=== PATIENT | male | born 1950 | race Two or more races ===

== ENCOUNTER 2021-08-30 09:19 | Outpatient (REF) | payer MEDICARE, SELFPAY ==
--- NOTE | ~2021-08-30 | XR_ITS ---
EXAMINATION: XR SHOULDER, RIGHT XR SHOULDER, LEFT CLINICAL INFORMATION: Bilateral shoulder pain. COMPARISON: None TECHNIQUE: AP external rotation, Grashey, scapular Y, and axillary views of each shoulder. FINDINGS: RIGHT SHOULDER: Moderate acromioclavicular osteoarthritis. There is more mild glenohumeral osteoarthritis with small marginal osteophytes. No joint space narrowing. No fracture or malalignment. Soft tissues are unremarkable. LEFT SHOULDER: Mild acromioclavicular osteoarthritis. 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 The glenohumeral joint appears well preserved. Soft tissues are unremarkable. No fractures. XR/XR shoulder LT min 2V IMPRESSION: 1. Moderate acromioclavicular and mild glenohumeral osteoarthritis in the right shoulder. 2. 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
--- NOTE | ~2021-08-30 | XR_ITS ---
EXAMINATION: XR SHOULDER, RIGHT XR SHOULDER, LEFT CLINICAL INFORMATION: Bilateral shoulder pain. COMPARISON: None TECHNIQUE: AP external rotation, Grashey, scapular Y, and axillary views of each shoulder. FINDINGS: RIGHT SHOULDER: Moderate acromioclavicular osteoarthritis. There is more mild glenohumeral osteoarthritis with small marginal osteophytes. No joint space narrowing. No fracture or malalignment. Soft tissues are unremarkable. LEFT SHOULDER: Mild acromioclavicular osteoarthritis. 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 The glenohumeral joint appears well preserved. Soft tissues are unremarkable. No fractures. XR/XR shoulder RT min 2V IMPRESSION: 1. Moderate acromioclavicular and mild glenohumeral osteoarthritis in the right shoulder. 2. 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
== END 2021-08-30 09:20 | disposition home or self-care (01) ==
LOC: HO.XRAY 09:19
PROVIDERS: PCP Internal Medicine Geriatric Medicine; Visit Provider Internal Medicine Geriatric Medicine
DX: M25.511 Pain in right shoulder (principal); M25.512 Pain in left shoulder; M19.011 Primary osteoarthritis, right shoulder; M89.212 Other disorders of bone development and growth, left shoulder
CPT/HCPCS: 73030

== ENCOUNTER → 2021-10-01 09:36 | Outpatient (BNVA) | payer MEDICARE, SELFPAY | PROVIDERS: PCP Internal Medicine Geriatric Medicine; Visit Provider Physician Assistant | DX: M75.101 Unspecified rotator cuff tear or rupture of right shoulder, not specified as traumatic (principal); M75.102 Unspecified rotator cuff tear or rupture of left shoulder, not specified as traumatic; M75.01 Adhesive capsulitis of right shoulder; M75.02 Adhesive capsulitis of left shoulder | CPT/HCPCS: 20610; 99202; J1040 ==

== ENCOUNTER 2022-10-24 09:23 | Outpatient (REF) | payer OTHER, SELFPAY ==
[2022-10-24 09:35] LABS: MANUAL DIFF FLAG NO
[2022-10-24 10:55] LABS: Prothrombin Time 11.7 SEC (10.0-13.1)
[2022-10-24 10:56] LABS: Basophils Absolute Auto 0.1 X10*3/uL (0.0-0.2); Basophils Percent Auto 1.1 % (0-2); Eosinophils Absolute Auto 0.5 X10*3/uL (0.0-0.4); Eosinophils Percent Auto 5.3 % (0-4); Imm Gran Abs Auto 0.07 X10*3/uL (0.00-0.03); Imm Gran Pct Auto 0.7 % (0.0-0.4); Lymphocytes Absolute Auto 3.7 X10*3/uL (1.2-4.9); Lymphocytes Percent Auto 37.3 % (20-40); Mean Corpuscular HGB Conc 32.4 g/dl (31.0-36.0); Mean Corpuscular Hemoglobin 26.8 pg (27.0-33.0); Mean Corpuscular Volume 82.9 fL (80.0-98.0); Mean Platelet Volume 12.1 fL (9.4-12.4); Monocytes Absolute Auto 0.8 X10*3/uL (0.1-1.2); Monocytes Percent Auto 8.2 % (2-11); Neutrophils Absolute Auto 4.7 x10*3/uL (2.0-8.3); Neutrophils Percent Auto 47.4 % (45-73); Platelet Count 213 X10*3/uL (160-400); Red Cell Distribution Width 15.9 % (11.0-16.0); White Blood Count 9.9 X10*3/uL (4.8-10.8)
[2022-10-24 11:22] LABS: Anion Gap 17 (12-20); Blood Urea Nitrogen 12 mg/dL (9-16); Calcium 9.3 mg/dL (8.4-10.2); Carbon Dioxide 24 mmol/L (22-29); Chloride 104 mmol/L (96-108); Estimated Glomerular Filt Rate > 60; Glucose Random 112 mg/dL (60-115); Potassium 4.2 mmol/L (3.3-5.1); Sodium 141 mmol/L (135-145)
== END 2022-10-24 09:24 | disposition home or self-care (01) ==
LOC: HO.LAB 09:23
PROVIDERS: PCP Internal Medicine Geriatric Medicine; Visit Provider Student in an Organized Health Care Education/Training Program
DX: R07.9 Chest pain, unspecified (principal)
CPT/HCPCS: 36415; 80048; 85025; 85610

== ENCOUNTER 2023-02-28 07:24 | Outpatient (REF) | payer OTHER, SELFPAY | END 2023-02-28 07:25 | disposition home or self-care (01) | LOC: HO.HOSX 07:24 | PROVIDERS: Visit Provider Physician Assistant | DX: Z13.89 Encounter for screening for other disorder (principal) ==

== ENCOUNTER 2023-03-24 11:40 | Outpatient (REF) | payer OTHER, SELFPAY | END 2023-03-24 11:41 | disposition home or self-care (01) | LOC: HO.HOSX 11:40 | PROVIDERS: Visit Provider Physician Assistant | DX: Z13.89 Encounter for screening for other disorder (principal) ==

== ENCOUNTER 2024-10-27 08:39 | Outpatient (REF) | payer OTHER, SELFPAY ==
--- OUTSIDE RECORDS SUMMARY | 2024-10-27 08:47 | XMS_ITS | Encounter Summary ---
Author Organization [employer] [facility] Address [address] [place] [address] Care Team Providers Care Rehab Director Name Role Phone Name, Saurabh BUSH Primary Care Provider [phone] Reason for Visit * Reason Comments Med Refill Encounter Details Date Type Department Care Team (Late st Contact Info) Description 06/03/2024 Refill [facility] [address] [place] [address] NameSaurabh MD [address] [place] [address] Social History Tobacco Use Types Packs/Day Years Used Date Smoking Tobacco: Never Smokeless Tobacco: Never Sex and Gender Information Value Date Recorded Sex Assigned at Male 07/08/2022 10:15 AM EDT Legal Sex Male 10:15 AM EDT Gender Identity Male 07/08/2022 10:15 AM EDT Sexual Orientation Straight 07/08/2022 10 :15 AM EDT documented as of this encounter Plan of Treatment Upcoming Encounters Date Type Department Care Team (Late st Contact Info) Description 01/13/2025 9:15 AM EDT Office Visit [facility] [address] [place] [address] Saurabh De La Paz MD [address] [place] [address] documented as of this encounter Visit Diagnoses Not on filedocumented in this encounter Care Teams Rehab Director Relationship Specialty Start Date End Date Saurabh De La Paz MD [address] [place] [address] PCP - General Family Medicine 12/06/15 documented as of this encounter
--- OUTSIDE RECORDS SUMMARY | 2024-10-27 08:47 | XMS_ITS | Encounter Summary ---
Author Organization [employer] [facility] Address [address] [place] [address] Care Team Providers Care Information Systems Analyst Name Role Phone Name, Saurabh BUSH Primary Care Provider [phone] Reason for Visit * Reason Comments Follow-up Encounter Details Date Type Department Care Team (Late st Contact Info) Description 10/26/2024 10:45 AM EST Office Visit [facility] [address] [place] [address] Name, MD Saurabh [address] [place] [address] Hypertension, unspecified type (Primary Dx); Grief; Chronic bilateral low back pain, unspecified whether sciatica present; Habitual alcohol use; Encounter for immunization Social History Tobacco Use Types Packs/Day Years Used Date Smoking Tobacco: Never Smokeless Tobacco: Never Alcohol Use Standard Drinks/Week Comments Yes 18 (1 standard drink = 0.6 oz pu re alcohol) Sex and Gender Information Value Date Recorded Sex Assigned at Male 07/08/2022 10:15 AM EDT Legal Sex Male 10:15 AM EDT Gender Identity Male 07/08/2022 10:15 AM EDT Sexual Orientation Straight 07/08/2022 10 :15 AM EDT documented as of this encounter Last Filed Vital Signs Vital Sign Reading Time Taken Comments Blood Pressure 135/68 10/26/2024 10:51 AM EST Pulse 90 10/26/2024 10:51 AM EST Temperature - - Respiratory Rate 14 10/26/2024 10:51 AM EST Oxygen Saturation 98% 10/26/2024 10:51 AM EST Inhaled Oxygen Concentration - - Weight 89.8 kg (198 lb) 10/26/2024 10:51 AM EST Height 170.2 cm (5' 7 ) 10/26/2024 10:51 AM EST Body Mass Index 31.01 10/26/2024 10:51 AM EST documented in this encounter Progress Notes * Saurabh De La Paz MD - 10/26/2024 10:45 AM EST Subjective Patient ID: Jose Bennett is a 74 y.o. male who presents for Follow-up. Patient comes for a follow-up visit. He complains of daily severe low back pain. He has a personal history of severe DJD of the lumbar spine. The patient also admits to some depression and insomnia. The patient tells me his recently . He denies any suicidal ideation. I offered referral to behavioral health but he told me he already has a behavioral health therapist going to his house. He has a history of excessive alcohol use. The patient admits to drinking a sixpack of beer every other day. The patient tells me he has not drank alcohol in 2 or 3 days. I offered again referralto AUD clinic but he is not interested. He denies the use of illicits. He denies any chest pains orshortness of breath. He tells me he is using his medications regularly. He was never a smoker. In the past he tested positive for cocaine but he tells me he rarely uses cocaine. Review of Systems Constitutional: Negative for chills, fatigue and fever. HENT: Negative for sore throat. Respiratory: Negative for cough, chest tightness and shortness of breath. Cardiovascular: Negative for chest pain, palpitations and leg swelling. Gastrointestinal: Negative for abdominal pain and blood in stool. Musculoskeletal: Positive for back pain. Psychiatric/Behavioral: Positive for sleep disturbance. Visit Vitals BP 135/68 (BP Location: Left arm, Patient Position: Sitting, BP Cuff Size: Adult) Pulse 90 Resp 14 Ht 5' 7 (1.702 m) Wt 198 lb (89.8 kg) SpO2 98% BMI 31.01 kg/m?? Smoking Status Never BSA 2.06 m?? Objective Physical Exam Constitutional: Appearance: Normal appearance. Cardiovascular: Rate and Rhythm: Normal rate and regular rhythm. Heart sounds: No murmur heard. Pulmonary: Effort: Pulmonary effort is normal. No respiratory distress. Breath sounds: No wheezing, rhonchi or rales. Abdominal: Palpations: Abdomen is soft. Tenderness: There is no abdominal tenderness. Musculoskeletal: Lumbar back: Spasms and tenderness present. Right lower leg: No edema. Left lower leg: No edema. Neurological: General: No focal deficit present. Mental Status: He is alert. Motor: No weakness. Current Outpatient Medications on File Prior to Visit Medication Sig Dispense Refill allopurinol (Zyloprim) 100 MG tablet TAKE 2 TABLETS BY MOUTH EVERY DAY 90 tablet 1 amLODIPine (Norvasc) 5 MG tablet TAKE 1 TABLET BY MOUTH EVERY DAY 90 tablet 3 Aspirin Low Dose 81 MG EC tablet TAKE 1 TABLET BY MOUTH EVERY DAY 90 tablet 0 cyanocobalamin (Vitamin B-12) 1000 MCG tablet TAKE 1 TABLET BY MOUTH ONCE DAILY 90 tablet 3 ergocalciferol (Vitamin D-2) 1.25 MG (12426 UT) capsule take 1 capsule by oral route every week 4 capsule 5 losartan-hydroCHLOROthiazide (Hyzaar) 100-25 MG tablet Take 1 tablet by mouth Once per day. 90 tablet 3 omega-3 (Fish Oil) 1000 MG capsule TAKE 1 CAPSULE BY MOUTH TWICE DAILY 180 capsule 0 omeprazole (PriLOSEC) [address] capsule TAKE 1 CAPSULE BY MOUTH EVERY DAY BEFORE A MEAL 90 capsule 1 [DISCONTINUED] baclofen (Lioresal) 10 MG tablet TAKE 1 TABLET BY MOUTH TWICE DAILY 40 tablet 1 [DISCONTINUED] omega-3 1000 MG capsule capsule Take 2 times a day No current facility-administered medications on file prior to visit. Assessment/Plan Diagnoses and all orders for this visit: Hypertension, unspecified type Comments: Continue current meds, cut back on alcohol, check fasting blood work listed below Orders: - CBC auto differential; Future - Comprehensive Metabolic Panel; Future - Lipid Panel, Standard; Future Grief Comments: I offered referral to behavioral health but he refused. He denies suicidal ideation. He already hasa therapist going to his house Chronic bilateral low back pain, unspecified whether sciatica present Comments: I recommended OTC naproxen and Tylenol 3 times a day. Repeat urine tox screen. If urine tox screen is negative I will prescribe short course of tramadol to control his severe low back pain. Habitual alcohol use Comments: I recommended to cut back. For now he refuses referral to AUD clinic Orders: - Comprehensive Metabolic Panel; Future - Drug Monitoring, Cocaine Metabolite, Quantitative, Urine; Future - Drug Monitoring, Fentanyl, with Confirmation, Urine; Future - Oxycodone Screen, Urine; Future Encounter for immunization - FLU VACCINE TRIVALENT (Fluarix) 6 mo + documented in this encounter Plan of Treatment Upcoming Encounters Date Type Department Care Team (Late st Contact Info) Description 01/13/2025 9:15 AM EDT Office Visit [facility] [address] [place] [address] Name, MD Saurabh [address] [place] [address] Scheduled Orders Name Type Priority Associated Diagnoses Orde r Schedule CBC auto differential Lab Routine Hypertension, unspecified type Expected: 10/26/2024 (Approximate), Expires: 10/26/2025 Comprehensive Metabolic Panel Lab Routine Hypertension, unspecified type Habitual alcohol use Expected: 10/26/2024 (Approximate), Expires: 10/26/2025 Lipid Panel, Standard Lab Routine Hypertension, unspecified type Expected: 10/26/2024 (Approximate), Expires: 10/26/2025 Drug Monitoring, Cocaine Metabolite, Quantitative, Urine Lab Routine Habitual alcohol use Expected: 10/26/2024, Expires: 10/26/2025 Drug Monitoring, Fentanyl, with Confirmation, Urine Lab Routine Habitual alcohol use Expected: 10/26/2024, Expires: 10/26/2025 Oxycodone Screen, Urine Lab Routine Habitual alcohol use Expected: 10/26/2024 (Approximate), Expires: 10/26/2025 documented as of this encounter Visit Diagnoses Diagnosis Hypertension, unspecified type- Primary Grief Adjustment disorder with depressed mood Chronic bilateral low back pain, unspecified whether sciatica present Habitual alcohol use Nondependent alcohol abuse, unspecified drinking behavior Encounter for immunization documented in this encounter Care Teams Information Systems Analyst Relationship Specialty Start Date End Date Name, MD Saurabh [address] [place] [id number] PCP - General Family Medicine 12/06/15 documented as of this encounter
--- OUTSIDE RECORDS SUMMARY | 2024-10-27 08:47 | XMS_ITS | Encounter Summary ---
Author Organization [employer] [facility] Address [address] [facility] [address] [place] [address] Care Team Providers Care Window Tinter Name Role Phone Name, Saurabh BUSH Primary Care Provider [phone] Reason for Visit * Reason Comments Med Refill Encounter Details Date Type Department Care Team (Late st Contact Info) Description 10/04/2024 Refill [facility] [address] [place] [address] NameSaurabh MD [address] [place] [address] Heartburn Social History Tobacco Use Types Packs/Day Years [...] Description 01/13/2025 9:15 AM EDT Office Visit [facility] [address] [place] [address] NameSaurabh MD [address] [place] [address] documented as of this encounter Visit Diagnoses Diagnosis Heartburn documented in this encounter Care Teams Window Tinter Relationship Specialty Start Date End Date Saurabh De La Paz MD [address] [place] [address] PCP - General Family Medicine 12/06/15 documented as of this encounter
--- OUTSIDE RECORDS SUMMARY | 2024-10-27 08:47 | XMS_ITS | Encounter Summary ---
Author Organization [employer] [facility] Address [address] [place] [address] Care Team Providers Care Oil Field Roustabout Name Role Phone Name, Saurabh BUSH Primary Care Provider [phone] Encounter Details Date Type Department Care Team (Late st Contact Info) Description 10/26/2024 Telephone [facility] [address] [place] [phone] Carmen Maciel RN Social History Tobacco Use Types Packs/Day Years [...] AM EDT documented as of this encounter Miscellaneous Notes * Telephone Encounter - Carmen Maciel RN - 10/26/2024 11:20 AM EST High dose currently not available and administered regular influence vaccine instead, pt tolerated well and no adverse reactions noted. documented in this encounter Plan of Treatment Upcoming Encounters Date Type Department Care Team (Late st Contact Info) Description 01/13/2025 9:15 AM EDT Office Visit [facility] [address] [place] [address] Name, [place] [address] documented as of this encounter Visit Diagnoses Not on filedocumented in this encounter Care Teams Oil Field Roustabout Relationship Specialty Start Date End Date Name, MD Saurabh [address] [place] [address] PCP - General Family Medicine 12/06/15 documented as of this encounter
--- OUTSIDE RECORDS SUMMARY | 2024-10-27 08:47 | XMS_ITS | Encounter Summary ---
Author Organization [facility] [facility] Address [address] 7t [place] [address] Care Team Providers Care Title I Math Tutor Name Role Phone Name, Saurabh BUSH Primary Care Provider [phone] Reason for Visit * Reason Comments Med Refill Encounter Details Date Type Department Care Team (Late st Contact Info) Description 07/24/2023 Refill [facility] [address] [place] [address] NameSaurabh MD [address] [place] [address] Social History Tobacco Use Types Packs/Day Years [...] Description 01/13/2025 9:15 AM EDT Office Visit [facility] [address] [place] [address] Saurabh De La Paz MD [address] [place] [address] documented as of this encounter Visit Diagnoses Not on filedocumented in this encounter Care Teams Title I Math Tutor Relationship Specialty Start Date End Date Saurabh De La Paz MD [address] [place] [address] PCP - General Family Medicine 12/06/15 documented as of this encounter
--- OUTSIDE RECORDS SUMMARY | 2024-10-27 08:47 | XMS_ITS | Encounter Summary ---
Author Organization [employer] [facility] Address [address] [place] [address] Care Team Providers Care Director Of Channel Marketing Name Role Phone Name, Saurabh BUSH Primary Care Provider [phone] Encounter Details Date Type Department Care Team (Late st Contact Info) Description 08/21/2022 Orders Only [facility] [address] [place] [address] Livia Hyman LPN Social History Tobacco Use Types Packs/Day Years Used Date Smoking Tobacco: Never Assessed Sex and Gender Information Value Date Recorded Sex Assigned at Male 07/08/2022 10:15 AM EDT Legal Sex Male 10:15 AM EDT Gender Identity Male 07/08/2022 10:15 AM EDT Sexual Orientation Straight 07/08/2022 10 :15 AM EDT documented as of this encounter Plan of Treatment Upcoming Encounters Date Type Department Care Team (Late st Contact Info) Description 01/13/2025 9:15 AM EDT Office Visit [facility] [address] [place] [address] Name, MD Saurabh [address] [place] [address] documented as of this encounter Visit Diagnoses Not on filedocumented in this encounter Care Teams Director Of Channel Marketing Relationship Specialty Start Date End Date Name, MD Saurabh [address] [place] [address] PCP - General Family Medicine 12/06/15 documented as of this encounter
--- OUTSIDE RECORDS SUMMARY | 2024-10-27 08:47 | XMS_ITS | Encounter Summary ---
Author Organization [employer] [facility] Address [address] [address] [place] [address] Care Team Providers Care Wooden Box Maker Name Role Phone Name, Saurabh BUSH Primary Care Provider [phone] Reason for Visit * Reason Comments Med Refill Encounter Details Date Type Department Care Team (Late st Contact Info) Description 05/31/2024 Refill [facility] [address] [place] [address] Bessy Mcghee FNP [address] [place] [address] Social History Tobacco Use Types Packs/Day Years [...] Description 01/13/2025 9:15 AM EDT Office Visit [facility] [address] [place] [address] Name, MD Saurabh [address] [place] [address] documented as of this encounter Visit Diagnoses Not on filedocumented in this encounter Care Teams Wooden Box Maker Relationship Specialty Start Date End Date Name, MD Saurabh [address] [place] [address] PCP - General Family Medicine 12/06/15 documented as of this encounter
--- OUTSIDE RECORDS SUMMARY | 2024-10-27 08:47 | XMS_ITS | Encounter Summary ---
Author Organization [facility] Address [address] [facility] [address] [place] [address] Care Team Providers Care Captain Room Service Name Role Phone Name, Saurabh BUSH Primary Care Provider [phone] Reason for Visit * Reason Onset Date Comments Med Refill [facility]V Form 06/16/2024 I called the pat ient, regarding a Request for Replacement Placard from the RMV. I informed him that the request is for him to complete. There is no place for the provider to sign. He asked if it is possible for a staff member to mail the form out to the [facility]. It will be mailed out today, and a copy will be sent to his home. He verbalized understanding. Encounter Details Date Type Department Care Team (Late st Contact Info) Description 06/16/2024 Refill [facility] [address] [place] [address] Name, MD Saurabh [address] [place], [place] [id number] Social History Tobacco Use Types Packs/Day Years Used Date Smoking Tobacco: Never Smokeless Tobacco: Never Sex and Gender Information Value Date Recorded Sex Assigned at Male 07/08/2022 10:15 AM EDT Legal Sex Male 10:15 AM EDT Gender Identity Male 07/08/2022 10:15 AM EDT Sexual Orientation Straight 07/08/2022 10 :15 AM EDT documented as of this encounter Miscellaneous Notes * Telephone Encounter - Kaylah Liu MA - 06/23/2024 9:59 AM EDT I called the patient, regarding a Request for Replacement Placard from the [facility]. I informed him thatthe request is for him to complete. There is no place for the provider to sign. He asked if it is possible for a staff member to mail the form out to the [facility]. It will be mailed out today, and a copy will be sent to his home. He verbalized understanding. documented in this encounter Plan of Treatment Upcoming Encounters Date Type Department Care Team (Late st Contact Info) Description 01/13/2025 9:15 AM EDT Office Visit [facility] [address] [place] [address] Name, MD Saurabh [address] [place] [address] documented as of this encounter Visit Diagnoses Not on filedocumented in this encounter Care Teams Captain Room Service Relationship Specialty Start Date End Date Name, MD Saurabh [address] [place] [phone] PCP - General Family Medicine 12/06/15 documented as of this encounter
--- OUTSIDE RECORDS SUMMARY | 2024-10-27 08:47 | XMS_ITS | Clinical Summary ---
Author Organization [employer] Address [address] [facility] 7t [place] [address] Care Team Providers Care Ballet Company Member Name Role Phone Name, Saurabh BUSH Primary Care Provider [phone] Allergies No known active allergies Medications ergocalciferol (Vitamin D-2) 1.25 MG (81747 UT) capsuleIndicat ions:Vitamin D deficiency take 1 capsule by oral route every week 4 capsule 5 08/21/20 22 Active amLODIPine (Norvasc) 5 MG tabletIndicati ons:Peripheral vascular disease (CMS/HCC) TAKE 1 TABLET BY MOUTH EVERY DAY 90 tablet 3 10/23/19 23 Active cyanocobalamin (Vitamin B-12) 1000 MCG tabletIndicati ons:Peripheral vascular disease (CMS/HCC) TAKE 1 TABLET BY MOUTH ONCE DAILY 90 tablet 3 11/25/19 24 Active omega-3 (Fish Oil) 1000 MG capsuleIndicat ions:Periphera l vascular disease (CMS/HCC) TAKE 1 CAPSULE BY MOUTH TWICE DAILY 180 capsule 01/27/20 24 Active losartan-hydro CHLOROthiazide (Hyzaar) 100-25 MG tablet Take 1 tablet by mouth Once per day. 90 tablet 3 03/17/20 24 Active allopurinol (Zyloprim) 100 MG tablet TAKE 2 TABLETS BY MOUTH EVERY DAY 90 tablet 1 07/30/20 24 Active Aspirin Low Dose 81 MG EC tablet TAKE 1 TABLET BY MOUTH EVERY DAY 90 tablet 09/17/19 25 Active omeprazole (PriLOSEC) [address] capsuleIndicat ions:Heartburn TAKE 1 CAPSULE BY MOUTH EVERY DAY BEFORE A MEAL 90 capsule 1 10/04/19 25 Active omega-3 1000 MG capsule capsule Take 2 times a day 06/13/20 22 025 Discontinued(Du plicate order (will not trigger notification to Pharmacy)) baclofen (Lioresal) 10 MG tablet TAKE 1 TABLET BY MOUTH TWICE DAILY 40 tablet 1 03/12/20 23 025 Discontinued(Th erapy completed) omeprazole (PriLOSEC) [address] capsuleIndicat ions:Heartburn TAKE 1 CAPSULE BY MOUTH EVERY DAY BEFORE A MEAL 90 capsule 1 12/23/19 24 025 Discontinued Active Problems Problem Noted Date Diagnosed Date Umbilical hernia without obstruction and without gangrene 11/04/2017 Tinea pedis 07/23/2017 Alcohol abuse 01/25/2016 Low back pain 01/25/2016 Gout 02/04/2013 Right bundle branch block 01/21/2013 Overview (12/06/2022): F/u with cardi, had normal cardiac cath with [place] Dysphagia 01/21/2013 Dactylitis 12/08/2012 Cobalamin deficiency 12/04/2012 Microscopic hematuria 12/04/2012 Vitamin D deficiency 09/17/2012 KANDIS positive 09/17/2012 Lumbosacral radiculopathy 06/04/2012 Raynaud's disease 06/04/2012 Scoliosis deformity of spine 06/04/2012 Peripheral vascular disease 02/26/2012 Pure hypercholesterolemia 02/26/2012 Arthropathy 02/26/2012 Chronic eczema 02/26/2012 Obesity 02/26/2012 Encounters Date Type Department Care Team Description 10/26/2024 10:45 AM EST Office Visit [facility] [address] [place] [address] Name, MD Saurabh Hypertension, unspecified type (Primary Dx); Grief; Chronic bilateral low back pain, unspecified whether sciatica present; Habitual alcohol use; Encounter for immunization 10/26/2024 Telephone [facility] [address] [place], [place] [phone] Carmen Maciel RN 10/26/2024 Travel 10/04/[address] [facility] [address] [place] [address] NameSaurabh MD Heartburn 09/17/[address] [facility] [address] [place] [address] NameSaurabh MD 07/30/[address] [facility] [address] [place] [address] Name, MD Saurabh from Last 3 Months Immunizations Name Administration Dates Next Due Influenza High-dose Quadriva lent Preservative Free 08/20/2022,06/27/2020 Influenza injectable quadriv alent IIV4 with preservative 07/10/2018,07/23/2017,07/08/2016 Influenza injectable quadriv alent preservative free 08/29/2021,06/15/2015 Influenza, High Dose Seasona l, Preservative Free 05/28/2019 Influenza, IIV3, injectable 07/22/2014, 2 Influenza, Split (incl. perez fied surface antigen) 06/16/2013 Influenza, seasonal, injecta ble, preservative free 10/26/2024 Pneumococcal Conjugate PCV 13 04/15/2018 Pneumococcal Polysaccharide PPSV23 10/11/2009 TD (adult), 2 Lf tetanus tox oid, preservative free, adsorbed 03/01/2008 Tdap 08/02/2013 Zoster, live 08/11/2015 Social History Tobacco Use Types Packs/Day Years Used Date Smoking Tobacco: Never Smokeless Tobacco: Never Tobacco Cessation:Counseling Given: Not Answered Alcohol Use Standard Drinks/Week Comments Yes 18 (1 standard drink = 0.6 oz pu re alcohol) Sex and Gender Information Value Date Recorded Sex Assigned at Male 07/08/2022 10:15 AM EDT Legal Sex Male 10:15 AM EDT Gender Identity Male 07/08/2022 10:15 AM EDT Sexual Orientation Straight 07/08/2022 10 :15 AM EDT Last Filed Vital Signs Vital Sign Reading Time Taken Comments Blood Pressure 135/68 10/26/2024 10:51 AM EST Pulse 90 10/26/2024 10:51 AM EST Temperature 37.1 ??C (98.7 ??F) 12/06/2022 10:12 AM E DT Respiratory Rate 14 10/26/2024 10:51 AM EST Oxygen Saturation 98% 10/26/2024 10:51 AM EST Inhaled Oxygen Concentration - - Weight 89.8 kg (198 lb) 10/26/2024 10:51 AM EST Height 170.2 cm (5' 7 ) 10/26/2024 10:51 AM EST Body Mass Index 31.01 10/26/2024 10:51 AM EST Plan of Treatment Upcoming Encounters Date Type Department Care Team (Late st Contact Info) Description 01/13/2025 9:15 AM EDT Office Visit [facility] [address] [place] [address] Name, MD Saurabh [address] [place] [address] Health Maintenance Due Date Last Done Comments CT Colonography 1952 Colonoscopy 1952 Colorectal Cancer Screening 1952 Depression Screening 1952 FIT DNA/Cologuard 1952 FIT 1952 FOBT 1952 Lipid Panel 1952 SDOH Screening 1952 Sigmoidoscopy 1952 Alcohol/Substance Use Screening 1964 Hepatitis C Screening 1970 Hepatitis A Vaccines (1 of 2 - Risk 2-dose series) 1971 Zoster Vaccines (2 of 3) 10/06/2015 08/11/2015 Pneumococcal Vaccine: 50+ Years (3 of 3 - PCV20 or PCV21) 04/15/2023 04/15/2018, 10/11/2009 DTaP/Tdap/Td Vaccines (2 - Td or Tdap) 08/02/2023 08/02/2013, 03/01/2008 COVID-19 Vaccine ( season) 2024 08/29/2021, 11/28/2020, 10/31/2020 Tobacco Screening 10/26/2025 10/26/2024 RSV Patients and Patients Aged 60 years or older (1 - 1-dose 75+ series) 2027 Influenza Vaccine Completed 10/26/2024, , 08/29/2021, Additional history exists HIB Vaccines Aged Out No longer eligi ble based on patient's age to complete this topic HPV Vaccines Aged Out No longer eligi ble based on patient's age to complete this topic Hepatitis B Vaccines Aged Out No long er eligible based on patient's age to complete this topic IPV Vaccines Aged Out No longer eligi ble based on patient's age to complete this topic Meningococcal Vaccine Aged Out No denise mariana eligible based on patient's age to complete this topic RSV under 20 months Aged Out No longe r eligible based on patient's age to complete this topic Rotavirus Vaccines Aged Out No longer eligible based on patient's age to complete this topic Insurance [facility] Care Teams Ballet Company Member Relationship Specialty Start Date End Date Name, MD Saurabh [address] [place] [address] PCP - General Family Medicine 12/06/15
--- OUTSIDE RECORDS SUMMARY | 2024-10-27 08:47 | XMS_ITS | Encounter Summary ---
Author Organization [employer] [facility] Address [address] [address] [place] [address] Care Team Providers Care Smt Operator Name Role Phone Name, Saurabh BUSH Primary Care Provider [phone] Encounter Details Date Type Department Care Team (Late st Contact Info) Description 10/23/2022 Orders Only [facility] [address] [place] [address] Anna Chapman LPN Social History Tobacco Use Types Packs/Day [...] Description 01/13/2025 9:15 AM EDT Office Visit [facility] [address] [place] [address] Name, MD Saurabh [address] [place] [address] documented as of this encounter Visit Diagnoses Not on filedocumented in this encounter Care Teams Smt Operator Relationship Specialty Start Date End Date Name, MD Saurabh [address] [place] [address] PCP - General Family Medicine 12/06/15 documented as of this encounter
--- OUTSIDE RECORDS SUMMARY | 2024-10-27 08:47 | XMS_ITS | Encounter Summary ---
Author Organization [employer] [facility] Address [address] [facility] 7t [place] [address] Care Team Providers Care Plate Grainer Name Role Phone Name, Saurabh BUSH Primary Care Provider [phone] Encounter Details Date Type Department Care Team (Latest Contact Info) Description 10/26/2024 Travel Social History Tobacco Use Types Packs/Day Years [...] Description 01/13/2025 9:15 AM EDT Office Visit [facility] [address] [place] [address] Name, MD Saurabh [address] [place] [address] documented as of this encounter Visit Diagnoses Not on filedocumented in this encounter Care Teams Plate Grainer Relationship Specialty Start Date End Date Name, MD Saurabh [address] [place] [address] PCP - General Family Medicine 12/06/15 documented as of this encounter
--- OUTSIDE RECORDS SUMMARY | 2024-10-27 08:48 | XMS_ITS | Encounter Summary ---
Author Organization [employer] [facility] Address [address] [place] [address] 7 [place] [address] Care Team Providers Care Classification Analyst Name Role Phone Name, Saurabh BUSH Primary Care Provider Reason for Visit * Reason Comments Med Refill Encounter Details Date Type Department Care Team (Late st Contact Info) Description 12/02/2022 Refill [facility] [address] [place] [address] NameSaurabh MD [address] [place] [address] Vitamin D deficiency Social History Tobacco Use Types Packs/Day Years [...] Description 01/13/2025 9:15 AM EDT Office Visit [facility] [address] [place] [address] NameSaurabh MD [address] [place] [address] documented as of this encounter Visit Diagnoses Diagnosis Vitamin D deficiency documented in this encounter Care Teams Classification Analyst Relationship Specialty Start Date End Date Saurabh De La Paz MD [address] [place] [address] PCP - General Family Medicine 12/06/15 documented as of this encounter
[2024-10-27 11:17] LABS: MANUAL DIFF FLAG NO
[2024-10-27 11:35] LABS: Basophils Absolute Auto 0.1 X10*3/uL (0.0-0.2); Basophils Percent Auto 0.8 % (0-2); Eosinophils Absolute Auto 0.4 X10*3/uL (0.0-0.4); Eosinophils Percent Auto 4.3 % (0-4); Hematocrit 32.5 % (42.0-52.0); Hemoglobin 10.3 g/dl (14.0-18.0); Imm Gran Abs Auto 0.13 X10*3/uL (0.00-0.03); Imm Gran Pct Auto 1.4 % (0.0-0.4); Lymphocytes Absolute Auto 2.7 X10*3/uL (1.2-4.9); Lymphocytes Percent Auto 28.1 % (20-40); Mean Corpuscular HGB Conc 31.7 g/dl (31.0-36.0); Mean Corpuscular Hemoglobin 27.9 pg (27.0-33.0); Mean Corpuscular Volume 88.1 fL (80.0-98.0); Mean Platelet Volume 12.1 fL (9.4-12.4); Monocytes Absolute Auto 1.2 X10*3/uL (0.1-1.2); Monocytes Percent Auto 12.2 % (2-11); Neutrophils Percent Auto 53.2 % (45-73); Platelet Count 179 X10*3/uL (160-400); Red Blood Count 3.69 X10*6/uL (4.60-5.80); Red Cell Distribution Width 15.1 % (11.0-16.0); White Blood Count 9.5 X10*3/uL (4.8-10.8)
[2024-10-27 11:50] LABS: Alanine Aminotransferase 30 U/L (0-40); Albumin Level 4.1 g/dL (3.5-5.0); Alkaline Phosphatase 49 U/L (39-117); Anion Gap 12 (12-20); Aspartate Amino Transferase 30 U/L (5-37); Bilirubin Total 0.2 mg/dL (0.0-1.0); Blood Urea Nitrogen 13 mg/dL (9-16); Carbon Dioxide 25 mmol/L (22-29); Chloride 107 mmol/L (96-108); Cholesterol 215 mg/dL (<200); Estimated Glomerular Filt Rate > 60; Glucose Random 117 mg/dL (60-115); HDL Cholesterol 51 mg/dL (>40); LDL Cholesterol Calculated 113 mg/dL (<100); Potassium 3.9 mmol/L (3.3-5.1); Sodium 140 mmol/L (135-145); Total Protein 7.9 g/dL (6.5-8.0); Triglycerides 259 mg/dL (<150)
[2024-10-27 11:58] LABS: Fentanyl, urine Not Detected (Not Detect); Phencyclidine Screen Urine Not Detected (Not Detect)
[2024-10-27 12:05] LABS: Amphetamine Screen Urine Not Detected (Not Detect); Barbiturates, Urine Not Detected (Not Detect); Benzodiazepines Screen Urine Not Detected (Not Detect); Buprenorphine Scr Not Detected (Not Detect); Cannabinoid Screen Urine Not Detected (Not Detect); Cocaine Screen Urine POSITIVE (Not Detect); Methadone Screen, Urine Not Detected (Not Detect); Opiate Screen Urine Not Detected (Not Detect); Oxycodone Screen Urine Not Detected (Not Detect)
[2024-11-01 13:13] LABS: Fentanyl, Ur NEGATIVE; Norfentanyl, Ur NEGATIVE
== END 2024-10-27 08:40 | disposition home or self-care (01) ==
LOC: HO.HHCL 08:39
PROVIDERS: Visit Provider Internal Medicine Geriatric Medicine
DX: I10 Essential (primary) hypertension (principal); F10.90 Alcohol use, unspecified, uncomplicated
CPT/HCPCS: 80053; 80061; 80307; 80354; 85025

== ENCOUNTER 2025-01-13 09:59 | Outpatient (REF) | payer OTHER, SELFPAY ==
--- OUTSIDE RECORDS SUMMARY | 2025-01-13 11:01 | XMS_ITS | Encounter Summary ---
Author Organization [employer] Address [address] [facility] 7t [place] [address] Care Team Providers Care Christmas Tree Farm Worker Name Role Phone Name, Saurabh BUSH Primary Care Provider [phone] Reason for Visit * Reason Onset Date [...] to mail the form out to the [facility]. It will be mailed out today, and a copy will be sent to his home. He verbalized understanding. Encounter Details Date Type Department Care Team (Late st Contact Info) Description 06/16/2024 Refill [facility] [address] [place], [place] [phone] Name, MD Saurabh [address] [place], [place] [phone] Social History Tobacco Use Types Packs/Day Years [...] to mail the form out to the [facility]. It will be mailed out today, and a copy will be sent to his home. He verbalized understanding. documented in this encounter Plan of Treatment Upcoming Encounters Date Type Department Care Team (Late st Contact Info) Description 05/06/2025 10:00 AM EDT Office Visit [facility] [address] [place] [address] Name, MD Saurabh [address] [place] [address] documented as of this encounter Visit Diagnoses Not on filedocumented in this encounter Care Teams Christmas Tree Farm Worker Relationship Specialty Start Date End Date Name, MD Saurabh [address] [place] [address] PCP - General Family Medicine 12/06/15 documented as of this encounter
--- OUTSIDE RECORDS SUMMARY | 2025-01-13 11:01 | XMS_ITS | Encounter Summary ---
Author Organization [employer] [facility] Address [address] [facility] 7t [place] [address] Care Team Providers Care Hot Metal Mixer Operator Name Role Phone Name, Saurabh BUSH Primary Care Provider [phone] Reason for Visit * Reason Comments Med Refill Encounter Details Date Type Department Care Team (Late st Contact Info) Description 12/02/2022 Refill [facility] [address] [place] [address] NameSaurabh MD [address] [place] [address] Vitamin D deficiency Social History Tobacco Use [...] Description 05/06/2025 10:00 AM EDT Office Visit [facility] [address] [place] [address] NameSaurabh MD [address] [place] [address] documented as of this encounter Visit Diagnoses Diagnosis Vitamin D deficiency documented in this encounter Care Teams Hot Metal Mixer Operator Relationship Specialty Start Date End Date Saurabh De La Paz MD [address] [place] [address] PCP - General Family Medicine 12/06/15 documented as of this encounter
--- OUTSIDE RECORDS SUMMARY | 2025-01-13 11:01 | XMS_ITS | Encounter Summary ---
Author Organization [employer] Address [address] [facility] 7t [place] [address] Care Team Providers Care Machine Maintenance Repairer Name Role Phone Name, Saurabh BUSH Primary Care Provider [phone] Reason for Visit * Reason Comments Med Refill Encounter Details Date Type Department Care Team (Late st Contact Info) Description 07/24/2023 Refill [facility] PED[facility] [address] [place] [address] NameSaurabh MD [address] [place] [address] Social History Tobacco Use Types Packs/Day Years [...] Description 05/06/2025 10:00 AM EDT Office Visit [facility] [address] [place] [address] NameSaurabh MD [address] [place] [address] documented as of this encounter Visit Diagnoses Not on filedocumented in this encounter Care Teams Machine Maintenance Repairer Relationship Specialty Start Date End Date Saurabh De La Paz MD [address] [place] [address] PCP - General Family Medicine 12/06/15 documented as of this encounter
--- OUTSIDE RECORDS SUMMARY | 2025-01-13 11:01 | XMS_ITS | Encounter Summary ---
Author Organization [employer] [facility] Address [address] [facility] [address] [place] [address] Care Team Providers Care Advertising Operations Manager Name Role Phone Name, Saurabh BUSH Primary Care Provider Encounter Details Date Type Department Care Team (Late st Contact Info) Description 08/21/2022 Orders Only [facility] [address] [place], [place] [phone] Livia Hyman LPN Social History Tobacco Use [...] Description 05/06/2025 10:00 AM EDT Office Visit [facility] [address] [place] [address] Name, MD Saurabh [address] [place] [address] documented as of this encounter Visit Diagnoses Not on filedocumented in this encounter Care Teams Advertising Operations Manager Relationship Specialty Start Date End Date Name, MD Saurabh [address] [place] [address] PCP - General Family Medicine 12/06/15 documented as of this encounter
--- OUTSIDE RECORDS SUMMARY | 2025-01-13 11:01 | XMS_ITS | Encounter Summary ---
Author Organization [employer] [facility] Address [address] [place] [address] 7t [place] [address] Care Team Providers Care Boatswains Mate Name Role Phone Saurabh De La Paz MD Primary Care Provider [phone] Reason for Referral * Consultation (Routine) - Pending Review Specialty Diagnoses / Procedures Referred By Chanda fritz Referred To Contact Otolaryngology Diagnoses Decreased hearing of both ears Chronic otitis externa of both ears, unspecified type NameSaurabh MD [address] [place] [address] Phone: tel: fax: Referral ID Status Reason Start Date Expiration Date Visits Requested Visits Authorized [id number] Pending Review Specialty Services Required 01/13/2025 01/13/2026 1 1 Reason for Visit * Reason Comments Hypertension Encounter Details Date Type Department Care Team ([facility] st Contact Info) Description 01/13/2025 9:15 AM EDT Office Visit [facility] [address] [place] [phone] Saurabh De La Paz MD [address] [place] [phone] Anemia, unspecified type (Primary Dx); Chronic otitis externa of both ears, unspecified type; Decreased hearing of both ears Social History Tobacco Use Types Packs/Day Years Used Date Smoking Tobacco: Never Smokeless Tobacco: Never Tobacco Cessation:Counseling Given: Not Answered Alcohol Use Standard Drinks/Week Comments Yes 18 (1 standard drink = 0.6 oz pu re alcohol) Depression Answer Date Recorded Patient Health Questionnaire-9 Score 7 01/13/2025 Patient Health Questionnaire-9 Score 7 01/13/2025 Last PHQ-9: Questionnaire Data Not on file 0 01/13/2025 Housing Stability Answer Date Recorded What is your housing situation today? I have yuri anand 12/30/[address] you li ve. Do you have problems with any of the following? None of the above 12/30/2024 Food Insecurity Answer Date Recorded Within the past 12 months, y ou worried that your food would run out before you got money to buy more: Never True 12/30/2024 Within the past 12 months,th e food you bought just didn't last and you didn't have enough money to get more: Never True Transportation Answer Date Recorded In the past 12 months, has l ack of transportation kept you from medical appts, meetings, work or from getting things needed for daily living? No 12/30/2024 Utilities Answer Date Recorded In the past 12 months, has t he electric, gas, oil or water company threatened to shut off services in your home? No 12/30/2024 Depression Answer Date Recorded Patient Health Questionnaire-2 Score 1 01/13/2025 Internet Access Answer Date Recorded Internet Access Q1 Yes 12/30/2024 Internet Access Q2 Not on file 12/30/2024 Sex and Gender Information Value Date Recorded Sex Assigned at Male 07/08/2022 10:15 AM EDT Legal Sex Male 10:15 AM EDT Gender Identity Male 07/08/2022 10:15 AM EDT Sexual Orientation Straight 07/08/2022 10 :15 AM EDT documented as of this encounter Last Filed Vital Signs Vital Sign Reading Time Taken Comments Blood Pressure 146/72 01/13/2025 9:22 AM EDT Pulse 88 01/13/2025 9:22 AM EDT Temperature 37.2 ??C (99 ??F) 01/13/2025 9:22 AM EDT Respiratory Rate 12 01/13/2025 9:22 AM EDT Oxygen Saturation 98% 01/13/2025 9:22 AM EDT Inhaled Oxygen Concentration - - Weight 89.3 kg (196 lb 12.8 oz) 01/13/2025 9:22 AM EDT Height 172.7 cm (5' 8 ) 01/13/2025 9:22 AM EDT Body Mass Index 29.92 01/13/2025 9:22 AM EDT documented in this encounter Progress Notes * Saurabh De La Paz MD - 01/13/2025 9:15 AM EDT Subjective Patient ID: Jose Bennett is a 74 y.o. male who presents for Hypertension. Patient comes for a follow-up visit. He complains of bilateral ear pain, decreased hearing. He has a personal history of recurrent ear infections for many years. The patient admits to occasionally using Q-tips. No fevers or chills, no headaches, no vertigo. We discussed results of most recent blood work. He was found to have mild anemia. I recommended to go for further workup ordered previously including iron, ferritin, B12 levels and fecal occult bloodtesting. The patient denies any blood in the stool. No black stool. Review of Systems Constitutional: Negative for chills, fatigue and fever. HENT: Negative for sore throat. See HPI Respiratory: Negative for cough, chest tightness and shortness of breath. Cardiovascular: Negative for chest pain, palpitations and leg swelling. Gastrointestinal: Negative for abdominal pain and blood in stool. Visit Vitals BP (!) 146/72 (BP Location: Left arm, Patient Position: Sitting, BP Cuff Size: Adult) Pulse 88 Temp 99 ??F (37.2 ??C) (Temporal) Resp 12 Ht 5' 8 (1.727 m) Wt 196 lb 12.8 oz (89.3 kg) SpO2 98% BMI 29.92 kg/m?? Smoking Status Never BSA 2.07 m?? Objective Physical Exam Constitutional: Appearance: Normal appearance. HENT: Right Ear: Decreased hearing noted. Tympanic membrane is injected and scarred. Left Ear: Decreased hearing noted. Tympanic membrane is injected and scarred. Ears: Comments: Bilateral ear canal swelling and redness Cardiovascular: Rate and Rhythm: Normal rate and regular rhythm. Heart sounds: No murmur heard. Pulmonary: Effort: Pulmonary effort is normal. No respiratory distress. Breath sounds: No wheezing, rhonchi or rales. Abdominal: Palpations: Abdomen is soft. Tenderness: There is no abdominal tenderness. Musculoskeletal: Right lower leg: No edema. Left lower leg: No edema. Neurological: Mental Status: He is alert. 2 mo ago 2 yr ago White Blood Count 4.8 - 10.8 X10*3/uL 9.5 9.9 Red Blood Count 4.60 - 5.80 X10*6/uL 3.69 Low 4.10 Low Hemoglobin 14.0 - 18.0 g/dl 10.3 Low 11.0 Low Hematocrit 42.0 - 52.0 % 32.5 Low 34.0 Low Mean Corpuscular Volume 80.0 - 98.0 fL 88.1 82.9 Mean Corpuscular Hemoglobin 27.0 - 33.0 pg 27.9 26.8 Low Mean Corpuscular HGB Conc 31.0 - 36.0 g/dl 31.7 32.4 Red Cell Distribution Width 11.0 - 16.0 % 15.1 15.9 Platelet Count 160 - 400 X10*3/uL 179 213 Mean Platelet Volume 9.4 - 12.4 fL 12.1 12.1 Neutrophils Percent Auto 45 - 73 % 53.2 47.4 Imm Gran Pct Auto 0.0 - 0.4 % 1.4 High 0.7 High Lymphocytes Percent Auto 20 - 40 % 28.1 37.3 Monocytes Percent Auto 2 - 11 % 12.2 High 8.2 Eosinophils Percent Auto 0 - 4 % 4.3 High 5.3 High Basophils Percent Auto 0 - 2 % 0.8 1.1 NRBC Pct Auto 0.0 - 0.2 /100WBC 0.0 0.0 Neutrophils Absolute Auto 2.0 - 8.3 x10*3/uL 5.0 4.7 Imm Gran Abs Auto 0.00 - 0.03 X10*3/uL 0.13 High 0.07 High Lymphocytes Absolute Auto 1.2 - 4.9 X10*3/uL 2.7 3.7 Monocytes Absolute Auto 0.1 - 1.2 X10*3/uL 1.2 0.8 Eosinophils Absolute Auto 0.0 - 0.4 X10*3/uL 0.4 0.5 High Basophils Absolute Auto 0.0 - 0.2 X10*3/uL 0.1 0.1 NRBC Abs Auto 0.0 - 0.012 X10*3/uL 0.000 0.000 Resulting Agency [facility] Assessment/Plan Diagnoses and all orders for this visit: Anemia, unspecified type Comments: I recommended to go to the lab today to check iron levels, ferritin, B12 and folate, fecal occult blood testing. Chronic otitis externa of both ears, unspecified type Comments: I recommend a course of p.o. Augmentin and topical Corticosporin. Referral to ENT. Orders: - Referral to ENT; Future Decreased hearing of both ears - vvbmraai-qqtybzjea-xmjlhrrcbjeyhc (Cortisporin) 3.5-49647-6 otic suspension; Administer 3-4 dropsinto affected ear(s) 4 times daily for 10 days. - Referral to ENT; Future Other orders - amoxicillin-clavulanate (Augmentin) 875-125 MG tablet; Take 1 tablet by mouth 2 times daily for 10 days. documented in this encounter Plan of Treatment Upcoming Encounters Date Type Department Care Team (Late st Contact Info) Description 05/06/2025 10:00 AM EDT Office Visit [facility] [address] [place] [phone] Name, MD Saurabh [address] [place] [phone] Scheduled Referrals Name Type Priority Associated Diagnoses Orde r Schedule Referral to ENT Outpatient Referral Routine Decreased hearing of both ears Chronic otitis externa of both ears, unspecified type Expected: 01/13/2025 (Approximate), Expires: 01/13/2026 documented as of this encounter Visit Diagnoses Diagnosis Anemia, unspecified type- Primary Chronic otitis externa of both ears, unspecified type Decreased hearing of both ears documented in this encounter Additional Health Concerns Assessment Noted Time PHQ-9 Depression Total Score: 7 01/14/20 25 9:24 AM EDT documented as of this encounter Care Teams Boatswains Mate Relationship Specialty Start Date End Date Name, MD Saurabh [address] [place] [address] PCP - General Family Medicine 12/06/15 documented as of this encounter
--- OUTSIDE RECORDS SUMMARY | 2025-01-13 11:01 | XMS_ITS | Encounter Summary ---
Author Organization [employer] Address [address] [facility] [address] [place] [address] Care Team Providers Care Mine Wedge Sawyer Name Role Phone Name, Saurabh BUSH Primary Care Provider [phone] Reason for Visit * Reason Onset Date Comments Chart Prep 01/12/2025 Encounter Details Date Type Department Care Team ([facility] st Contact Info) Description 01/12/2025 Telephone [facility] MEDICINE [address] [place] [address] Brittaney Kaur MA Chart Prep Social History Tobacco Use Types Packs/Day Years [...] encounter Miscellaneous Notes * Telephone Encounter - Brittaney Kaur MA - 01/12/2025 10:05 AM EDT Chart Prep Labs: not done Images: not applicable Referrals: not applicable Vaccines due: Covid, PCV20, Tdap, and Zoster Screenings: Hep C Overdue care gaps: SDOH, PHQ-9, YESSICA-7, Disability screen, and Tobacco documented in this encounter Plan of Treatment Upcoming Encounters Date Type Department Care Team (Late st Contact Info) Description 05/06/2025 10:00 AM EDT Office Visit [facility] MEDICINE [address] [place] [phone] NameSaurabh MD [address] [place] [address] documented as of this encounter Visit Diagnoses Not on filedocumented in this encounter Care Teams Mine Wedge Sawyer Relationship Specialty Start Date End Date Saurabh De La Paz MD [address] [place] [address] PCP - General Family Medicine 12/06/15 documented as of this encounter
--- OUTSIDE RECORDS SUMMARY | 2025-01-13 11:01 | XMS_ITS | Encounter Summary ---
Author Organization [employer] Address 75 [facility] 7t [place] [address] Care Team Providers Care Field Underwriter Name Role Phone Name, Saurabh BUSH Primary Care Provider [phone] Reason for Visit * Reason Comments Med Refill Encounter Details Date Type Department Care Team (Late st Contact Info) Description 05/31/2024 Refill [facility] MED & PEDS [address] [place] [address] Bessy Mcghee FNP [address] [place] [address] Social History Tobacco Use Types Packs/Day Years [...] Description 05/06/2025 10:00 AM EDT Office Visit [facility] MEDICINE [address] [place] [address] Name, MD Saurabh [address] [place] [address] documented as of this encounter Visit Diagnoses Not on filedocumented in this encounter Care Teams Field Underwriter Relationship Specialty Start Date End Date Name, MD Saurabh [address] [place] [address] PCP - General Family Medicine 12/06/15 documented as of this encounter
--- OUTSIDE RECORDS SUMMARY | 2025-01-13 11:01 | XMS_ITS | Encounter Summary ---
Author Organization [employer] Address 75 [facility] 7t [place] [address] Care Team Providers Care Fuel Conversion Technician Name Role Phone Name, Saurabh BUSH Primary Care Provider [phone] Reason for Visit * Reason Comments Med Refill Encounter Details Date Type Department Care Team (Late st Contact Info) Description 06/03/2024 Refill [facility] CH[facility] MED & PEDS [address] [place] [address] NameSaurabh MD [address] [place] [address] Social History Tobacco Use Types Packs/Day Years [...] Description 05/06/2025 10:00 AM EDT Office Visit [facility] MEDICINE [address] [place] [address] NameSaurabh MD [address] [place] [address] documented as of this encounter Visit Diagnoses Not on filedocumented in this encounter Care Teams Fuel Conversion Technician Relationship Specialty Start Date End Date Saurabh De La Paz MD [address] [place] [address] PCP - General Family Medicine 12/06/15 documented as of this encounter
--- OUTSIDE RECORDS SUMMARY | 2025-01-13 11:02 | XMS_ITS | Encounter Summary ---
Author Organization [employer] Address [address] [facility] [address] [place] [address] Care Team Providers Care Derrick Helper Name Role Phone Name, Saurabh BUSH Primary Care Provider Encounter Details Date Type Department Care Team (Late st Contact Info) Description 10/23/2022 Orders Only [facility] MED & PEDS [address] [place] [address] Anna Chapman LPN Social History Tobacco Use [...] 10:00 AM EDT Office Visit [facility] MEDICINE [address] [place] [address] Name, MD Saurabh [address] [place] [address] documented as of this encounter Visit Diagnoses Not on filedocumented in this encounter Care Teams Derrick Helper Relationship Specialty Start Date End Date Name, MD Saurabh [address] [place] [address] PCP - General Family Medicine 12/06/15 documented as of this encounter
--- OUTSIDE RECORDS SUMMARY | 2025-01-13 11:02 | XMS_ITS | Encounter Summary ---
Author Organization [employer] Address [address] [facility] [address] [place] [address] Care Team Providers Care Laminator Printed Circuit Boards Name Role Phone Name, Saurabh BUSH Primary Care Provider Encounter Details Date Type Department Care Team (Latest Contact Info) Description 01/13/2025 Travel Social History Tobacco Use Types Packs/Day [...] your housing situation today? I have yuri kika 12/30/[address] you li [...] Description 05/06/2025 10:00 AM EDT Office Visit [facility] MEDICINE [address] [place] [address] NameSaurabh MD [address] [place] [address] documented as of this encounter Visit Diagnoses Not on filedocumented in this encounter Additional Health Concerns Assessment Noted Time PHQ-9 Depression Total Score: 7 01/14/20 25 9:24 AM EDT documented as of this encounter Care Teams Laminator Printed Circuit Boards Relationship Specialty Start Date End Date NameSaurabh MD [address] [place] [address] PCP - General Family Medicine 12/06/15 documented as of this encounter
--- OUTSIDE RECORDS SUMMARY | 2025-01-13 11:02 | XMS_ITS | Clinical Summary ---
Author Organization [employer] Address 75 [facility] 7t [place] [address] Care Team Providers Care Crop Supervisor Name Role Phone Name, Saurabh BUSH Primary Care Provider [phone] Allergies No known active allergies Medications ergocalciferol (Vitamin D-2) 1.25 MG (94730 UT) capsuleIndicati ons:Vitamin D deficiency take 1 capsule by oral route every week 4 capsule 5 08/21/20 22 Active amLODIPine (Norvasc) 5 MG tabletIndicatio ns:Peripheral vascular disease (CMS/HCC) TAKE 1 TABLET BY MOUTH EVERY DAY 90 tablet 3 10/23/19 23 Active cyanocobalamin (Vitamin B-12) 1000 MCG tabletIndicatio ns:Peripheral vascular disease (CMS/HCC) TAKE 1 TABLET BY MOUTH ONCE DAILY 90 tablet 3 11/25/19 24 Active losartan-hydroC HLOROthiazide (Hyzaar) 100-25 MG tablet Take 1 tablet by mouth Once per day. 90 tablet 3 03/17/20 24 Active omeprazole (PriLOSEC) [address] capsuleIndicati ons:Heartburn TAKE 1 CAPSULE BY MOUTH EVERY DAY BEFORE A MEAL 90 capsule 1 10/04/19 25 Active atorvastatin (Lipitor) 20 MG tabletIndicatio ns:High cholesterol Take 1 tablet (20 mg) by mouth Once per day. 30 tablet 11 10/28/19 25 026 Active omega-3 (Fish Oil) 1000 MG capsuleIndicati ons:Peripheral vascular disease (CMS/HCC) TAKE 1 CAPSULE BY MOUTH TWICE DAILY 180 capsule 10/28/19 25 Active allopurinol (Zyloprim) 100 MG tablet TAKE 2 TABLETS BY MOUTH EVERY DAY 180 tablet 1 11/24/19 25 Active Aspirin Low Dose 81 MG EC tablet TAKE 1 TABLET BY MOUTH EVERY DAY 90 tablet 12/17/19 25 Active neomycin-polymy nunu-hydrocortis one (Cortisporin) 3.5-22614-5 otic suspensionIndic ations:Decrease d hearing of both ears Administer 3-4 drops into affected ear(s) 4 times daily for 10 days. 10 mL 01/14/20 25 025 Active amoxicillin-cla vulanate (Augmentin) 875-125 MG tablet Take 1 tablet by mouth 2 times daily for 10 days. 20 tablet 01/14/20 25 025 Active Aspirin Low Dose 81 MG EC tablet TAKE 1 TABLET BY MOUTH EVERY DAY 90 tablet 09/17/19 25 025 Discontinued Active Problems Problem Noted Date Diagnosed Date Anemia 01/13/2025 Chronic otitis externa of both ears 01/13/2025 Umbilical hernia without obstruction and without gangrene 11/04/2017 Tinea pedis 07/23/2017 Alcohol abuse 01/25/2016 Low back pain 01/25/2016 Gout 02/04/2013 Right bundle branch block 01/21/2013 Overview (12/06/2022): F/u with cardi, had normal cardiac cath with [place] Dysphagia 01/21/2013 Cobalamin deficiency 12/04/2012 Microscopic hematuria 12/04/2012 Vitamin D deficiency 09/17/2012 KANDIS positive 09/17/2012 Lumbosacral radiculopathy 06/04/2012 Raynaud's disease 06/04/2012 Scoliosis deformity of spine 06/04/2012 Peripheral vascular disease 02/26/2012 Pure hypercholesterolemia 02/26/2012 Arthropathy 02/26/2012 Chronic eczema 02/26/2012 Obesity 02/26/2012 Resolved Problems Problem Noted Date Diagnosed Date Resolved Date Dactylitis 12/08/2012 10/28/2024 Encounters Date Type Department Care Team Description 01/13/2025 9:15 AM EDT Office Visit [facility] MEDICINE [address] [place] [address] Name, MD Saurabh Anemia, unspecified type (Primary Dx); Chronic otitis externa of both ears, unspecified type; Decreased hearing of both ears 01/13/2025 Travel 01/12/2025 Telephone [facility] MEDICINE [address] [place] [address] Brittaney Kaur MA Chart Prep 12/30/2024 Patient Outreach [facility] MED & PEDS [address] [place] [address] Saurabh De La Paz MD Pre-visit Planning (SDOH negative, Tobacco screening negative.) 12/16/2024 Refill [facility] MED & PEDS [address] [place] [address] Genesis Ku NP 11/22/2024 Refill [facility] MED & PEDS [address] [place] [address] Saurabh De La Paz MD 10/28/2024 Refill [facility] MED & PEDS [address] [place], [place] [phone] Saurabh De La Paz MD Peripheral vascular disease ([facility]/HCC) 10/28/2024 Telephone [facility]INE [address] [place] [address] Saurabh De La Paz MD 10/28/2024 Orders Only [facility] [address] [place] [address] Saurabh De La Paz MD High cholesterol (Primary Dx); Anemia, unspecified type 10/27/2024 Orders Only [facility] [address] [place] [address] Saurabh De La Paz MD 10/26/2024 10:45 AM EST Office Visit [facility]INE [address] [place] [address] Saurabh De La Paz MD Hypertension, unspecified type (Primary Dx); Grief; Chronic bilateral low back pain, unspecified whether sciatica present; Habitual alcohol use; Encounter for immunization 10/26/2024 Telephone [facility] [address] [place] [address] Carmen Maciel, REESE 10/26/2024 Travel from Last 3 Months Immunizations Name Administration [...] Mass Index 29.92 01/13/2025 9:22 AM EDT Plan of Treatment Upcoming Encounters Date Type Department Care Team (Late st Contact Info) Description 05/06/2025 10:00 AM EDT Office Visit [facility] MED[facility]INE [address] [place] [address] Name, MD Saurabh [address] [place] [address] Health Maintenance Due Date Last Done Comments CT Colonography 1952 Colonoscopy 1952 Colorectal Cancer Screening 1952 FIT DNA/Cologuard 1952 FIT 1952 FOBT 1950 Sigmoidoscopy 1952 Hepatitis C Screening 1970 Zoster Vaccines (2 of 3) 10/06/2015 08/11/2015 Pneumococcal Vaccine: 50+ Years (3 of 3 - PCV20 or PCV21) 04/15/2023 04/15/2018, 10/11/2009 DTaP/Tdap/Td Vaccines (2 - Td or Tdap) 08/02/2023 08/02/2013, 03/01/2008 COVID-19 Vaccine ( - season) 2024 08/29/2021, 11/28/2020, 10/31/2020 Alcohol/Substance Use Screening 01/13/2026 01/13/2025 Depression Screening 01/13/2026 01/13/2025, 01/14/20 SDOH Screening 01/13/2026 01/13/2025 Tobacco Screening 01/13/2026 01/13/2025 RSV Patients and Patients Aged 60 years or older (1 - 1-dose 75+ series) 2027 Lipid Panel 10/27/2029 10/27/2024 Influenza Vaccine Completed 10/26/2024, , 08/29/2021, Additional history exists HIB Vaccines Aged Out No longer eligi ble based on patient's age to complete this topic HPV Vaccines Aged Out No longer eligi ble based on patient's age to complete this topic Hepatitis A Vaccines Aged Out No long er eligible [...] on patient's age to complete this topic Procedures Procedure Name Priority Date/Time Associated Diagnosis Comments DRUG MONITOR, PANEL 1, SCREEN, URINE Routine 10/27/2024 8:58 AM EST DRUG MONITOR, FENTANYL, W/CONF, URINE Routine 10/27/2024 8:58 AM EST Habitual alcohol use LIPID PANEL, STANDARD Routine 10/27/2024 8:53 AM EST Hypertension, unspecified type COMPREHENSIVE METABOLIC PANEL Routine 10/27/2024 8:53 AM EST Hypertension, unspecified type Habitual alcohol use CBC WITH AUTO DIFFERENTIAL Routine 10/27/2024 8:53 AM EST Hypertension, unspecified type from Last 3 Months Results * (ABNORMAL) Drug Monitoring, Panel 1, Screen, Urine (10/27/2024 8:58 AM EST) Opiate Screen Urine Not Detected Not Detect [facility] Comment:Opiate cut-off is 30 0 ng/mL.Positive results are unconfirmed and should not be used fornon-medical purposes. Barbiturates, Urine Not Detected Not Detect [facility] Comment:Barbiturate cut-off is 200 ng/mL.Positive results are unconfirmed and should not be used fornon-medical purposes. Phencyclidine Screen Urine Not Detected Not Detect [facility] Comment:Phencyclidine cut-of f is 25 ng/mL.Positive results are unconfirmed and should not be used fornon-medical purposes. Amphetamine Screen Urine Not Detected Not Detect [facility] Comment:Amphetamine cut-off is 1000 ng/mL.Positive results are unconfirmed and should not be used fornon-medical purposes. Benzodiazepines Screen Urine Not Detected Not Detect [facility] Comment:Benzodiazepine cut-o ff is 200 ng/mL.Positive results are unconfirmed and should not be used fornon-medical purposes. Cocaine Screen Urine POSITIVE(A) Not Detect [facility] Comment:Cocaine cut-off is 3 00 ng/mL.Positive results are unconfirmed and should not be used fornon-medical purposes. Cannabinoid Screen Urine Not Detected Not Detect [facility] Comment:Cannabinoid cut-off is 50 ng/mL.Positive results are unconfirmed and should not be used fornon-medical purposes. Methadone Screen, Urine Not Detected Not Detect ng/mL [facility] Comment:Methadone cut-off is 300 ng/mL.Positive results are unconfirmed and should not be used fornon-medical purposes. FENTANYL URINE Not Detected Not Detect [facility] Comment:Fentanyl cut-off is 1 ng/mL.Positive results are unconfirmed and should not be used fornon-medical purposes. Oxycodone Urine Screen Not Detected Not Detect ng/mL [facility] Comment:Oxycodone cut-off is 100 ng/mL.Positive results are unconfirmed and should not be used fornon-medical purposes. Buprenorphine Screen Not Detected Not Detect ng/mL [facility] Comment:Buprenorphine cut-of f is 5 ng/mL.Positive results are unconfirmed and should not be used fornon-medical purposes. 10/27/2024 8:58 AM EST 10/27/2024 11:22 AM EST us Saurabh De La Paz MD LAB URINE ORDERABLES Final Resul t Performing Organization Address [facility]/ZIP Co de Phone Number [facility] [address] [place] [phone] * Drug Monitoring, Fentanyl, with Confirmation, Urine (10/27/2024 8:58 AM EST) Fentanyl, Ur NEGATIVE [facility] Comment:REFERENCE RANGE: <0. 5 ng/mL Norfentanyl, Ur NEGATIVE [facility] Comment:REFERENCE RANGE: <0. 5 ng/mL Fentanyl Note SEE NOTE [facility] Comment:This drug testing is for medical treatment only. Analysiswas performed as non-forensic testing and these resultsshould be used only by healthcare providers to renderdiagnosis or treatment, or to monitor progress of medicalconditions.LDT Notes:Confirmation tests were developed and their analyticalperformance characteristics have been determined by [employer]. It has not been cleared or approved by the FDA.This assay has been validated pursuant to the CLIAregulations and is used for clinical purposes.Healthcare Providers needing Interpretation assistance,please contact us at [phone] ( ) M-F,8am to 10pm ESTTHIS TEST PERFORMED AT:[facility] [address] [phone] DIRECTOR: KRYSTA WILSON MD Urine (Urine, Random) 10/27/2024 8:58 AM EST 10/27/2024 11:22 AM EST us Saurabh De La Paz MD LAB URINE ORDERABLES Final Resul t Performing Organization Address [facility] Co de Phone Number [facility] [address] [place] [phone] * (ABNORMAL) CBC auto differential (10/27/2024 8:53 AM EST) White Blood Count 9.5 4.8 - 10.8 X10*3/uL [facility] Red Blood Count 3.69(L) 4.60 - 5.80 X10*6/uL [facility] Hemoglobin 10.3(L) 14.0 - 18.0 g/dl [facility] Hematocrit 32.5(L) 42.0 - 52.0 % [facility] Mean Corpuscular Volume 88.1 80.0 - 98.0 fL [facility] Mean Corpuscular Hemoglobin 27.9 27.0 - 33.0 pg [facility] Mean Corpuscular HGB Conc 31.7 31.0 - 36.0 g/dl [facility] Red Cell Distribution Width 15.1 11.0 - 16.0 % [facility] Platelet Count 179 160 - 400 X10*3/uL [facility] Mean Platelet Volume 12.1 9.4 - 12.4 fL [facility] Neutrophils Percent Auto 53.2 45 - 73 % [facility] Imm Gran Pct Auto 1.4(H) 0.0 - 0.4 % [facility] Lymphocytes Percent Auto 28.1 20 - 40 % [facility] Monocytes Percent Auto 12.2(H) 2 - 11 % [facility] Eosinophils Percent Auto 4.3(H) 0 - 4 % [facility] Basophils Percent Auto 0.8 0 - 2 % [facility] NRBC Pct Auto 0.0 0.0 - 0.2 /100WBC [facility] Neutrophils Absolute Auto 5.0 2.0 - 8.3 x10*3/uL [facility] Imm Gran Abs Auto 0.13(H) 0.00 - 0.03 X10*3/uL [facility] Lymphocytes Absolute Auto 2.7 1.2 - 4.9 X10*3/uL [facility] Monocytes Absolute Auto 1.2 0.1 - 1.2 X10*3/uL [facility] Eosinophils Absolute Auto 0.4 0.0 - 0.4 X10*3/uL [facility] Basophils Absolute Auto 0.1 0.0 - 0.2 X10*3/uL [facility] NRBC Abs Auto 0.000 0.0 - 0.012 X10*3/uL [facility] Blood Venous blood specimen / Unknown 10/27/2024 8:53 AM EST 10/27/2024 11:13 AM EST us Saurabh De La Paz MD LAB BLOOD ORDERABLES Final Resul t Performing Organization Address [facility] de Phone Number [facility] [address] [place] [address] [phone] * (ABNORMAL) Lipid Panel, Standard (10/27/2024 8:53 AM EST) Triglycerides 259(H) <150 mg/dL [facility] Comment:Desirable Triglyceri de: less than 150 mg/dLBorderline High Triglyceride 150-199 mg/dLHigh Triglyceride: 200-499 mg/dLVery High Triglyceride: greater than or equal to 5OO mg/dL Cholesterol 215(H) <200 mg/dL [facility] Comment:Desirable Cholestero l: less than 200 mg/dLBorderline High Cholesterol: 200-239 mg/dLHigh Cholesterol: greater than 239 mg/dL LDL Cholesterol Calculated 113(H) <100 mg/dL [facility] Comment:Desirable LDL: less than 100 mg/dLNear Optimal/Above Optimal LDL: 110- 129 mg/dLBorderline High LDL: 130-159 mg/dLHigh LDL: 160-189 mg/dLVery High LDL: greater than or equal to 190 mg/dL HDL Cholesterol 51 >40 mg/dL [facility] Comment:Desirable HDL: great er than 40 mg/dL Note: This HDL assay may give artificially low results in patients with liver disease. Blood Venous blood specimen / Unknown 10/27/2024 8:53 AM EST 10/27/2024 11:16 AM EST us Saurabh De La Paz MD LAB BLOOD ORDERABLES Final Resul t Performing Organization Address City/[facility] Co de Phone Number [facility] [address] [place] [phone] * (ABNORMAL) Comprehensive Metabolic Panel (10/27/2024 8:53 AM EST) Sodium 140 135 - 145 mmol/L [facility] Potassium 3.9 3.3 - 5.1 mmol/L [facility] Chloride 107 96 - 108 mmol/L [facility] Carbon Dioxide 25 22 - 29 mmol/L [facility] Anion Gap 12 12 - 20 [facility] Urea Nitrogen (BUN) 13 9 - 16 mg/dL [facility] Creatinine, Serum 0.72 0.5 - 1.4 mg/dL [facility] Estimated Glomerular Filt Rate >60 [facility] Comment:Chronic Kidney Disea se: Estimated GFR < 60 mL/min/1.00g6Wroyxv Kidney Disease: Estimated GFR < 15 mL/min/1.73m2 Glucose 117(H) 60 - 115 mg/dL [facility] Calcium 9.0 8.4 - 10.2 mg/dL [facility] Bilirubin, Total 0.2 0.0 - 1.0 mg/dL [facility] Aspartate Amino Transferase 30 5 - 37 U/L [facility] Alanine Aminotransferase 30 0 - 40 U/L [facility] Total Protein 7.9 6.5 - 8.0 g/dL [facility] Albumin Level 4.1 3.5 - 5.0 g/dL [facility] Alkaline Phosphatase 49 39 - 117 U/L [facility] Blood Venous blood specimen / Unknown 10/27/2024 8:53 AM EST 10/27/2024 11:16 AM EST us Saurabh De La Paz MD LAB BLOOD ORDERABLES Final Resul t [facility] [address] [place] [phone] from Last 3 Months Insurance [facility] [employer] (HMO D-SNP) ZACHARY DE [place] ROSA [id number] Care Teams Crop Supervisor Relationship Specialty Start Date End Date Name, MD Saurabh [address] [place] [address] PCP - General Family Medicine 12/06/15
[2025-01-13 11:09] LABS: MANUAL DIFF FLAG NO
[2025-01-13 11:12] LABS: Basophils Percent Auto 0.7 % (0-2); Eosinophils Percent Auto 3.7 % (0-4); Hemoglobin 10.8 g/dl (14.0-18.0); Imm Gran Abs Auto 0.17 X10*3/uL (0.00-0.03); Imm Gran Pct Auto 1.2 % (0.0-0.4); Lymphocytes Absolute Auto 3.1 X10*3/uL (1.2-4.9); Lymphocytes Percent Auto 22.5 % (20-40); Mean Corpuscular HGB Conc 32.7 g/dl (31.0-36.0); Mean Corpuscular Hemoglobin 27.6 pg (27.0-33.0); Mean Corpuscular Volume 84.4 fL (80.0-98.0); Mean Platelet Volume 11.4 fL (9.4-12.4); Monocytes Absolute Auto 1.4 X10*3/uL (0.1-1.2); Monocytes Percent Auto 10.2 % (2-11); Neutrophils Absolute Auto 8.6 x10*3/uL (2.0-8.3); Neutrophils Percent Auto 61.7 % (45-73); Platelet Count 231 X10*3/uL (160-400); Red Blood Count 3.91 X10*6/uL (4.60-5.80); Red Cell Distribution Width 15.4 % (11.0-16.0); White Blood Count 13.9 X10*3/uL (4.8-10.8)
[2025-01-13 11:13] LABS: Basophils Absolute Auto 0.1 X10*3/uL (0.0-0.2); Eosinophils Absolute Auto 0.5 X10*3/uL (0.0-0.4)
[2025-01-13 11:45] LABS: Alanine Aminotransferase 30 U/L (0-40); Albumin Level 4.6 g/dL (3.5-5.0); Alkaline Phosphatase 61 U/L (39-117); Anion Gap 17 (12-20); Aspartate Amino Transferase 35 U/L (5-37); Bilirubin Total 0.4 mg/dL (0.0-1.0); Blood Urea Nitrogen 16 mg/dL (9-16); Calcium 9.9 mg/dL (8.4-10.2); Carbon Dioxide 23 mmol/L (22-29); Chloride 100 mmol/L (96-108); Cholesterol 180 mg/dL (<200); Estimated Glomerular Filt Rate > 60; Ferritin 49 ng/mL (20-250); Glucose Random 102 mg/dL (60-115); HDL Cholesterol 56 mg/dL (>40); Iron 54 mcg/dL (45-160); LDL Cholesterol Calculated 61 mg/dL (<100); Percent Iron Saturation 15 % (15-50); Potassium 4.1 mmol/L (3.3-5.1); Sodium 136 mmol/L (135-145); Total Iron Binding Capacity 349 mcg/dL (228-428); Total Protein 8.5 g/dL (6.5-8.0); Triglycerides 315 mg/dL (<150); Unsaturated Iron Binding 295 ug/dL
[2025-01-13 11:57] LABS: Vitamin B12 954 pg/mL (200-900)
[2025-01-13 12:26] LABS: Oxycodone Screen Urine Not Detected (Not Detect)
[2025-01-20 09:46] LABS: Fentanyl, Ur NEGATIVE; Norfentanyl, Ur NEGATIVE
[2025-01-20 09:48] LABS: Benzoylecgonine >20000
== END 2025-01-13 10:00 | disposition home or self-care (01) ==
LOC: HO.HHCL 09:59
PROVIDERS: Visit Provider Internal Medicine Geriatric Medicine
DX: F10.20 Alcohol dependence, uncomplicated (principal); I10 Essential (primary) hypertension; D64.9 Anemia, unspecified
CPT/HCPCS: 80053; 80061; 80307; 80353; 80354; 82607; 82728; 82746; 83540; 85025

== ENCOUNTER 2025-01-14 13:07 | Outpatient (REF) | payer OTHER, SELFPAY ==
--- OUTSIDE RECORDS SUMMARY | 2025-01-14 13:11 | XMS_ITS | Encounter Summary ---
Author Organization [employer] Address [address] [facility] [place] [address] Care Team Providers Care Motor Express Clerk Name Role Phone Name, Saurabh BUSH Primary Care Provider [phone] Encounter Details Date Type Department Care Team (Late st Contact Info) Description 10/23/2022 Orders Only [facility] MED & PEDS [address] [place] [address] Anna Chapman LPN Social History Tobacco Use [...] Description 05/06/2025 10:00 AM EDT Office Visit [facility] MEDICINE [address] [place] [address] Name, MD Saurabh [address] [place] [address] documented as of this encounter Visit Diagnoses Not on filedocumented in this encounter Care Teams Motor Express Clerk Relationship Specialty Start Date End Date Name, MD Saurabh [address] [place] [address] PCP - General Family Medicine 12/06/15 documented as of this encounter
--- OUTSIDE RECORDS SUMMARY | 2025-01-14 13:11 | XMS_ITS | Encounter Summary ---
Author Organization [employer] Address [address] [facility] 7t [place] [address] Care Team Providers Care Inside Meter Tester Name Role Phone Name, Saurabh BUSH Primary Care Provider [phone] Reason for Visit * Reason Comments Med Refill Encounter Details Date Type Department Care Team (Late st Contact Info) Description 12/02/2022 Refill [facility] [address] [place] [address] NameSaurabh MD [address] [place] [address] Vitamin D deficiency Social History Tobacco Use [...] 10:00 AM EDT Office Visit [facility] MED[facility] [address] [place] [address] NameSaurabh MD [address] [place] [address] documented as of this encounter Visit Diagnoses Diagnosis Vitamin D deficiency documented in this encounter Care Teams Inside Meter Tester Relationship Specialty Start Date End Date Saurabh De La Paz MD [address] [place] [address] PCP - General Family Medicine 12/06/15 documented as of this encounter
--- OUTSIDE RECORDS SUMMARY | 2025-01-14 13:11 | XMS_ITS | Encounter Summary ---
Author Organization [employer] Address [address] [facility] 7t [place] [address] Care Team Providers Care Clinic Assistant Name Role Phone Name, Saurabh BUSH Primary Care Provider [phone] Reason for Visit * Reason Comments Med Refill Encounter Details Date Type Department Care Team (Late st Contact Info) Description 06/03/2024 Refill [facility] [address] [place] [address] NameSaurabh MD [address] [place] [address] Social History Tobacco Use Types Packs/Day Years [...] Description 05/06/2025 10:00 AM EDT Office Visit [facility] [address] [place] [address] NameSaurabh MD [address] [place] [address] documented as of this encounter Visit Diagnoses Not on filedocumented in this encounter Care Teams Clinic Assistant Relationship Specialty Start Date End Date aSurabh De La Paz MD [address] [place] [address] PCP - General Family Medicine 12/06/15 documented as of this encounter
--- OUTSIDE RECORDS SUMMARY | 2025-01-14 13:11 | XMS_ITS | Encounter Summary ---
Author Organization [employer] Address [address] [facility] 7t [place] [address] Care Team Providers Care Rib Sawyer Name Role Phone Name, Saurabh BUSH Primary Care Provider [phone] Reason for Visit * Reason Comments Med Refill Encounter Details Date Type Department Care Team (Late st Contact Info) Description 05/31/[address] [facility] [address] [place] [address] Bessy Mcgehe FNP [address] [place] [address] Social History Tobacco Use Types Packs/Day Years [...] Description 05/06/2025 10:00 AM EDT Office Visit [facility] [address] [place] [address] Name, MD Saurabh [address] [place] [address] documented as of this encounter Visit Diagnoses Not on filedocumented in this encounter Care Teams Rib Sawyer Relationship Specialty Start Date End Date NameSaurabh MD [address] [place] [address] PCP - General Family Medicine 12/06/15 documented as of this encounter
--- OUTSIDE RECORDS SUMMARY | 2025-01-14 13:11 | XMS_ITS | Encounter Summary ---
Author Organization [employer] Address [address] [facility] [address] [place] [address] Care Team Providers Care Cooker Syrup Name Role Phone Name, Saurabh BUSH Primary Care Provider [phone] Reason for Visit * Reason Comments Med Refill Encounter Details Date Type Department Care Team (Late st Contact Info) Description 07/24/2023 Refill [facility]S [address] [place] [address] NameSaurabh MD [address] [place] [address] Social History Tobacco Use Types Packs/Day Years [...] 10:00 AM EDT Office Visit [facility] MEDICINE [address] [place] [address] NameSaurabh MD [address] [place] [address] documented as of this encounter Visit Diagnoses Not on filedocumented in this encounter Care Teams Cooker Syrup Relationship Specialty Start Date End Date Saurabh De La Paz MD [address] [place] [address] PCP - General Family Medicine 12/06/15 documented as of this encounter
--- OUTSIDE RECORDS SUMMARY | 2025-01-14 13:11 | XMS_ITS | Encounter Summary ---
Author Organization [employer] [facility] Address [address] [facility] 7t [place] [address] Care Team Providers Care Skeiner Name Role Phone Name, Saurabh BUSH Primary Care Provider [phone] Encounter Details Date Type Department Care Team (Late st Contact Info) Description 08/21/2022 Orders Only [facility] [address] [place] [address] Livia Hyman LPN Social History Tobacco Use [...] Description 05/06/2025 10:00 AM EDT Office Visit [facility] MEDICINE [address] [place] [address] Name, MD Saurabh [address] [place] [address] documented as of this encounter Visit Diagnoses Not on filedocumented in this encounter Care Teams Skeiner Relationship Specialty Start Date End Date Name, MD Saurabh [address] [place] [address] PCP - General Family Medicine 12/06/15 documented as of this encounter
--- OUTSIDE RECORDS SUMMARY | 2025-01-14 13:11 | XMS_ITS | Encounter Summary ---
Author Organization [employer] Address [address] [facility] [address] 7[address] [place] [address] Care Team Providers Care Extruder Operator Multiple Name Role Phone Name, Saurabh BUSH Primary Care Provider [phone] Encounter Details Date Type Department Care Team (Late st Contact Info) Description 01/13/2025 Orders Only [facility] MEDICINE [address] [place], [place] [phone] Name, MD Saurabh [address] [place] [address] Social History Tobacco Use Types Packs/Day Years [...] t he electric, gas, oil or water [employer] threatened to shut off services in your [...] Description 05/06/2025 10:00 AM EDT Office Visit [facility] MEDIC[facility] [address] [place], [place] [phone] Name, MD Saurabh [address] [place] [address] documented as of this encounter Procedures Procedure Name Priority Date/Time Associated Diagnosis Comments CBC WITH AUTO DIFFERENTIAL Routine 01/13/2025 10:02 AM EDT LIPID PANEL, STANDARD Routine 01/13/2025 10:02 AM EDT COMPREHENSIVE METABOLIC PANEL Routine 01/13/2025 10:02 AM EDT documented in this encounter Results * (ABNORMAL) Lipid Panel, Standard (01/13/2025 10:02 AM EDT) Triglycerides 315(H) <150 mg/dL [facility] Comment:Desirable Triglyceri de: less than 150 mg/dLBorderline High Triglyceride 150-199 mg/dLHigh Triglyceride: 200-499 mg/dLVery High Triglyceride: greater than or equal to 5OO mg/dL Cholesterol 180 <200 mg/dL [facility] Comment:Desirable Cholestero l: less than 200 mg/dLBorderline High Cholesterol: 200-239 mg/dLHigh Cholesterol: greater than 239 mg/dL LDL Cholesterol Calculated 61 <100 mg/dL [facility] Comment:Desirable LDL: less than 100 mg/dLNear Optimal/Above Optimal LDL: 110- 129 mg/dLBorderline High LDL: 130-159 mg/dLHigh LDL: 160-189 mg/dLVery High LDL: greater than or equal to 190 mg/dL HDL Cholesterol 56 >40 mg/dL [facility] Comment:Desirable HDL: great er than 40 mg/dL Note: This HDL assay may give artificially low results in patients with liver disease. 01/13/2025 10:0 2 AM EDT 01/13/2025 11:05 AM EDT us Saurabh Name MD LAB BLOOD ORDERABLES Final Resul t [facility] [address] [place] [phone] [phone] * (ABNORMAL) Comprehensive Metabolic Panel (01/13/2025 10:02 AM EDT) Sodium 136 135 - 145 mmol/L [facility] Potassium 4.1 3.3 - 5.1 mmol/L [facility] Chloride 100 96 - 108 mmol/L [facility] Carbon Dioxide 23 22 - 29 mmol/L [facility] Anion Gap 17 12 - 20 [facility] Urea Nitrogen (BUN) 16 9 - 16 mg/dL [facility] Creatinine, Serum 0.86 0.5 - 1.4 mg/dL [facility] Estimated Glomerular Filt Rate >60 [facility] Comment:Chronic Kidney Disea se: Estimated GFR < 60 mL/min/1.23d5Jxsllx Kidney Disease: Estimated GFR < 15 mL/min/1.73m2 Glucose 102 60 - 115 mg/dL [facility] Calcium 9.9 8.4 - 10.2 mg/dL [facility] Bilirubin, Total 0.4 0.0 - 1.0 mg/dL [facility] Aspartate Amino Transferase 35 5 - 37 U/L [facility] Alanine Aminotransferase 30 0 - 40 U/L [facility] Total Protein 8.5(H) 6.5 - 8.0 g/dL [facility] Albumin Level 4.6 3.5 - 5.0 g/dL [facility] Alkaline Phosphatase 61 39 - 117 U/L [facility] 01/13/2025 10:0 2 AM EDT 01/13/2025 11:05 AM EDT us Saurabh Name MD LAB BLOOD ORDERABLES Final Resul t [facility] [address] [place] [phone] * (ABNORMAL) CBC auto differential (01/13/2025 10:02 AM EDT) White Blood Count 13.9(H) 4.8 - 10.8 X10*3/uL [facility] Red Blood Count 3.91(L) 4.60 - 5.80 X10*6/uL [facility] Hemoglobin 10.8(L) 14.0 - 18.0 g/dl [facility] Hematocrit 33.0(L) 42.0 - 52.0 % [facility] Mean Corpuscular Volume 84.4 80.0 - 98.0 fL [facility] Mean Corpuscular Hemoglobin 27.6 27.0 - 33.0 pg [facility] Mean Corpuscular HGB Conc 32.7 31.0 - 36.0 g/dl [facility] Red Cell Distribution Width 15.4 11.0 - 16.0 % [facility] Platelet Count 231 160 - 400 X10*3/uL [facility] Mean Platelet Volume 11.4 9.4 - 12.4 fL [facility] Neutrophils Percent Auto 61.7 45 - 73 % [facility] Imm Gran Pct Auto 1.2(H) 0.0 - 0.4 % [facility] Lymphocytes Percent Auto 22.5 20 - 40 % [facility] Monocytes Percent Auto 10.2 2 - 11 % [facility] Eosinophils Percent Auto 3.7 0 - 4 % [facility] Basophils Percent Auto 0.7 0 - 2 % [facility] NRBC Pct Auto 0.0 0.0 - 0.2 /100WBC [facility] Neutrophils Absolute Auto 8.6(H) 2.0 - 8.3 x10*3/uL [facility] Imm Gran Abs Auto 0.17(H) 0.00 - 0.03 X10*3/uL [facility] Lymphocytes Absolute Auto 3.1 1.2 - 4.9 X10*3/uL [facility] Monocytes Absolute Auto 1.4(H) 0.1 - 1.2 X10*3/uL [facility] Eosinophils Absolute Auto 0.5(H) 0.0 - 0.4 X10*3/uL [facility] Basophils Absolute Auto 0.1 0.0 - 0.2 X10*3/uL [facility] NRBC Abs Auto 0.000 0.0 - 0.012 X10*3/uL [facility] 01/13/2025 10:0 2 AM EDT 01/13/2025 11:05 AM EDT us Saurabh De La Paz MD LAB BLOOD ORDERABLES Final Resul t [facility] [address] [place] [phone] documented in this encounter Visit Diagnoses Not on filedocumented in this encounter Additional Health Concerns Assessment Noted Time PHQ-9 Depression Total Score: 7 01/14/20 25 9:24 AM EDT documented as of this encounter Care Teams Extruder Operator Multiple Relationship Specialty Start Date End Date Name, MD Saurabh [address] [place] [address] PCP - General Family Medicine 12/06/15 documented as of this encounter
--- OUTSIDE RECORDS SUMMARY | 2025-01-14 13:11 | XMS_ITS | Encounter Summary ---
Author Organization [email or web address] Address [address] [place] [address] Care Team Providers Care Clinical Research Nurse Name Role Phone Name, Saurabh BUSH Primary Care Provider [phone] Encounter Details Date Type Department Care Team [...] Description 05/06/2025 10:00 AM EDT Office Visit [facility] [address] [place] [address] NameSaurabh MD [address] [place] [address] documented as of this encounter Visit Diagnoses Not on filedocumented in this encounter Additional Health Concerns Assessment Noted Time PHQ-9 Depression Total Score: 7 01/14/20 25 9:24 AM EDT documented as of this encounter Care Teams Clinical Research Nurse Relationship Specialty Start Date End Date NameSaurabh MD [address] [place] [address] PCP - General Family Medicine 12/06/15 documented as of this encounter
--- OUTSIDE RECORDS SUMMARY | 2025-01-14 13:11 | XMS_ITS | Encounter Summary ---
Author Organization [employer] Address [address] [facility] [address]t [place] [address] Care Team Providers Care Correctional Substance Abuse Counselor Name Role Phone Name, Saurabh BUSH Primary Care Provider [phone] Reason for Visit * Reason Onset Date [...] (Late st Contact Info) Description 06/16/2024 Refill [facility] MED & PEDS [address] [place], [place] [phone] Name, MD Saurabh [address] [place], [place] [phone] Social History Tobacco Use Types Packs/Day Years [...] to mail the form out to the [facility]. It will be mailed out today, and a copy will be sent to his home. He verbalized understanding. documented in this encounter Plan of Treatment Upcoming Encounters Date Type Department Care Team (Late st Contact Info) Description 05/06/2025 10:00 AM EDT Office Visit [facility] MEDICINE [address] [place] [address] Name, MD Saurabh [address] [place] [address] documented as of this encounter Visit Diagnoses Not on filedocumented in this encounter Care Teams Correctional Substance Abuse Counselor Relationship Specialty Start Date End Date Name, MD Saurabh [address] [place] [phone] PCP - General Family Medicine 12/06/15 documented as of this encounter
--- OUTSIDE RECORDS SUMMARY | 2025-01-14 13:11 | XMS_ITS | Encounter Summary ---
Author Organization [employer] Address [address] [facility] [address] [place] [address] Care Team Providers Care Extractor Tender Raw Stock Name Role Phone Name, Saurabh BUSH Primary Care Provider [phone] Reason for Visit * Reason Onset Date Comments Chart Prep 01/12/2025 Encounter Details Date Type Department Care Team ([facility] st Contact Info) Description 01/12/2025 Telephone [facility] MEDICINE [address] [place] [address] Brittaney Kaur MA Chart Prep Social History [...] Description 05/06/2025 10:00 AM EDT Office Visit [facility] MEDICINE [address] [place] [address] NameSaurabh MD [address] [place] [address] documented as of this encounter Visit Diagnoses Not on filedocumented in this encounter Care Teams Extractor Tender Raw Stock Relationship Specialty Start Date End Date Saurabh De La Paz MD [address] [place] [address] PCP - General Family Medicine 12/06/15 documented as of this encounter
--- OUTSIDE RECORDS SUMMARY | 2025-01-14 13:11 | XMS_ITS | Encounter Summary ---
Author Organization [employer] [facility] Address [address] [facility] 7t [place] [address] Care Team Providers Care Sales & Service Associate Name Role Phone NameSaurabh MD Primary Care Provider [phone] Reason for Referral * Consultation (Routine) - Authorized Specialty Diagnoses / Procedures Referred By Contnarcisa t Referred To Contact Otolaryngology Diagnoses Decreased hearing of both ears Chronic otitis externa of both ears, unspecified type Saurahb De La Paz MD [address] [place] [address] Phone: tel: fax: [facility] [address] Phone: tel: fax: Referral ID Status Reason Start Date Expiration Date Visits Requested Visits Authorized [id number] Authorized Specialty Services Required 01/13/2025 01/13/2026 1 1 Reason for Visit * Reason Comments Hypertension Encounter Details Date Type Department Care Team (Late st Contact Info) Description 01/13/2025 9:15 AM EDT Office Visit [facility] MEDICINE [address] [place] [address] [phone] Saurabh De La Paz MD [address] [place] [phone] Anemia, unspecified type (Primary Dx); Chronic otitis [...] - 0.012 X10*3/uL 0.000 0.000 Resulting Agency [facility] Assessment/Plan Diagnoses and all orders [...] Future Decreased hearing of both ears - nwbvsqit-bmdfobbaf-czhymftpvkvgic (Cortisporin) [id number] otic suspension; Administer 3-4 dropsinto affected ear(s) 4 times daily for 10 days. - Referral to ENT; Future Other orders - amoxicillin-clavulanate (Augmentin) 875-125 MG tablet; Take 1 tablet by mouth 2 times daily for 10 days. documented in this encounter Plan of Treatment Upcoming Encounters Date Type Department Care Team (Late st Contact Info) Description 05/06/2025 10:00 AM EDT Office Visit [facility] MEDICINE [address] [place] [phone] NameSaurabh MD [address] [place] [phone] Scheduled Referrals Name Type Priority Associated Diagnoses [...] documented as of this encounter Care Teams Sales & Service Associate Relationship Specialty Start Date End Date Saurabh De La Paz MD [address] [place] [id number] PCP - General Family Medicine 12/06/15 documented as of this encounter
--- OUTSIDE RECORDS SUMMARY | 2025-01-14 13:11 | XMS_ITS | Clinical Summary ---
Author Organization [employer] Address [address] [facility] [address] [place] [address] Care Team Providers Care Drafter Electronic Name Role Phone Name, Saurabh BUSH Primary Care Provider [phone] Allergies No known active allergies Medications ergocalciferol (Vitamin D-2) 1.25 MG (52949 UT) capsuleIndicati ons:Vitamin D deficiency take 1 [...] 12/17/19 25 Active neomycin-polymy nunu-hydrocortis one (Cortisporin) [id number] otic suspensionIndic ations:Decrease d hearing of both [...] Description 01/13/2025 9:15 AM EDT Office Visit [facility] [address] [place] [phone] Saurabh De La Paz MD Anemia, unspecified type (Primary Dx); Chronic otitis externa of both ears, unspecified type; Decreased hearing of both ears 01/13/2025 Orders Only [facility] [address] [place] [address] Saurabh De La Paz MD 01/13/2025 Travel 01/12/2025 Telephone [facility] [address] [place] [address] Brittaney Kaur MA Chart Prep 12/30/2024 Patient Outreach [facility] [address] [place] [address] Saurabh De La Paz MD Pre-visit Planning (SDOH negative, Tobacco screening negative.) 12/16/2024 Refill [facility] [address] [place] [address] Genesis Ku NP 11/22/2024 Refill [facility] [address] [place] [address] Saurabh De La Paz MD 10/28/2024 Refill [facility] [address] [place], [place] [phone] Saurabh De La Paz MD Peripheral vascular disease (CMS/HCC) 10/28/2024 Telephone [facility] [address] [place] [phone] Saurabh De La Paz MD 10/28/2024 Orders Only [facility] [address] [place] [phone] Saurabh De La Paz MD High cholesterol (Primary Dx); Anemia, unspecified type 10/27/2024 Orders Only [facility] [address] [place] [phone] Saurabh De La Paz MD 10/26/2024 10:45 AM EST Office Visit [facility] [address] [place] [phone] Saurabh De La Paz MD Hypertension, unspecified type (Primary Dx); Grief; Chronic bilateral low back pain, unspecified whether sciatica present; Habitual alcohol use; Encounter for immunization 10/26/2024 Telephone [facility] [address] [place] [phone] Carmen Maciel, RN 10/26/2024 Travel from Last 3 Months Immunizations [...] Description 05/06/2025 10:00 AM EDT Office Visit [facility] [address] [place] [phone] Name, MD Saurabh [address] [place] [phone] Health Maintenance Due Date Last Done Comments CT Colonography 1952 Colonoscopy 1952 Colorectal Cancer Screening 1952 FIT DNA/Cologuard 1952 FIT 1952 FOBT 1950 Sigmoidoscopy 1952 Hepatitis C Screening 1970 Zoster Vaccines (2 of 3) 10/06/2015 08/11/2015 Pneumococcal Vaccine: 50+ Years (3 of 3 - PCV20 or PCV21) 04/15/2023 04/15/2018, 10/11/2009 DTaP/Tdap/Td Vaccines (2 - Td or Tdap) 08/02/2023 08/02/2013, 03/01/2008 COVID-19 Vaccine (4 - season) 2024 08/29/2021, 11/28/2020, 10/31/2020 Alcohol/Substance Use Screening 01/13/2026 01/13/2025 Depression Screening 01/13/2026 01/13/2025, 01/14/20 SDOH Screening 01/13/2026 01/13/2025 Tobacco Screening 01/13/2026 01/13/2025 RSV Patients and Patients Aged 60 years or older (1 - 1-dose 75+ series) 2027 Lipid Panel 01/13/2030 01/13/2025, 10/27/2024 Influenza Vaccine Completed 10/26/2024, , 08/29/2021, [...] Procedure Name Priority Date/Time Associated Diagnosis Comments LIPID PANEL, STANDARD Routine 01/13/2025 10:02 AM EDT COMPREHENSIVE METABOLIC PANEL Routine 01/13/2025 10:02 AM EDT CBC WITH AUTO DIFFERENTIAL Routine 01/13/2025 10:02 AM EDT VITAMIN B12/FOLATE, SERUM PANEL Routine 01/13/2025 10:02 AM EDT Anemia, unspecified type FERRITIN Routine 01/13/2025 10:02 AM EDT Anemia, unspecified type IRON AND TOTAL IRON BINDING CAPACITY Routine 01/13/2025 10:02 AM EDT Anemia, unspecified type OXYCODONE SCREEN, URINE Routine 01/13/2025 10:02 AM EDT Habitual alcohol use DRUG MONITOR, PANEL 1, SCREEN, URINE Routine [...] type from Last 3 Months Results * Oxycodone Screen, Urine (01/13/2025 10:02 AM EDT) Oxycodone Urine Screen Not Detected Not Detect ng/mL [facility] Comment:Oxycodone cut-off is 100 ng/mL.Positive results are unconfirmed and should not be used fornon-medical purposes. 01/13/2025 10:0 2 AM EDT 01/13/2025 11:41 AM EDT us Saurabh De La Paz MD LAB URINE ORDERABLES Final Resul t [facility] [address] [place] [phone] * (ABNORMAL) Vitamin B12 (Cobalamin) and Folate Panel, Serum (01/13/2025 10:02 AM EDT) Vitamin B12 954(H) 200 - 900 pg/mL [facility] Comment:NORMAL 200-900 PG/ML INDETERMINATE 160-199 PG/ML DEFICIENT < 160 PG/ML Folate 14.0 > or = 4.0 ng/mL [facility] Comment:Reference Values:> o r = 4.0 ng/mL< 4.0 ng/mL suggests folate deficiency Methotrexate, aminopterin and folinic acid(leucovorin) are chemotherapeutic agents whose molecularstructures are similar to folate; therefore, the Architectfolate assay cannot be used for patients using these drugs. Blood Venous blood specimen / Unknown 01/13/2025 10:02 AM EDT 01/13/2025 11:05 AM EDT us Saurabh Name MD LAB BLOOD ORDERABLES Final Resul t [facility] [address] [place] [phone] * (ABNORMAL) CBC auto differential (01/13/2025 10:02 AM EDT) Only the most recent of2 resultswithin the time period is included. White Blood Count 13.9(H) 4.8 - 10.8 X10*3/uL [facility] Red Blood Count 3.91(L) 4.60 - 5.80 X10*6/uL [facility] Hemoglobin 10.8(L) 14.0 - 18.0 g/dl [facility] Hematocrit 33.0(L) 42.0 - 52.0 % [facility] Mean Corpuscular Volume 84.4 80.0 - 98.0 fL [facility] Mean Corpuscular Hemoglobin 27.6 27.0 - 33.0 pg [facility] Mean Corpuscular HGB Conc 32.7 31.0 - 36.0 g/dl [facility] Red Cell Distribution Width 15.4 11.0 - 16.0 % [facility] Platelet Count 231 160 - 400 X10*3/uL [facility] Mean Platelet Volume 11.4 9.4 - 12.4 fL [facility] Neutrophils Percent Auto 61.7 45 - 73 % [facility] Imm Gran Pct Auto 1.2(H) 0.0 - 0.4 % [facility] Lymphocytes Percent Auto 22.5 20 - 40 % [facility] Monocytes Percent Auto 10.2 2 - 11 % [facility] Eosinophils Percent Auto 3.7 0 - 4 % [facility] Basophils Percent Auto 0.7 0 - 2 % [facility] NRBC Pct Auto 0.0 0.0 - 0.2 /100WBC [facility] Neutrophils Absolute Auto 8.6(H) 2.0 - 8.3 x10*3/uL [facility] Imm Gran Abs Auto 0.17(H) 0.00 - 0.03 X10*3/uL [facility] Lymphocytes Absolute Auto 3.1 1.2 - 4.9 X10*3/uL [facility] Monocytes Absolute Auto 1.4(H) 0.1 - 1.2 X10*3/uL [facility] Eosinophils Absolute Auto 0.5(H) 0.0 - 0.4 X10*3/uL [facility] Basophils Absolute Auto 0.1 0.0 - 0.2 X10*3/uL [facility] NRBC Abs Auto 0.000 0.0 - 0.012 X10*3/uL [facility] 01/13/2025 10:0 2 AM EDT 01/13/2025 11:05 AM EDT us Saurabh Name LAB BLOOD ORDERABLES Final Resul t [facility] [address] [place] [phone] * Iron And Total Iron Binding Capacity (01/13/2025 10:02 AM EDT) Iron 54 45 - 160 mcg/dL [facility] Total Iron Binding Capacity 349 228 - 428 mcg/dL [facility] Percent Iron Saturation 15 15 - 50 % [facility] Unsaturated Iron Binding 295 ug/dL [facility] Blood Venous blood specimen / Unknown 01/13/2025 10:02 AM EDT 01/13/2025 11:05 AM EDT us Saurabh De La Paz MD LAB BLOOD ORDERABLES Final Resul t Performing Organization Address City/[facility]/ZIP Co de Phone Number [facility] [address] [place] [phone] * Ferritin (01/13/2025 10:02 AM EDT) Ferritin 49 20 - 250 ng/mL [facility] Blood Venous blood specimen / Unknown 01/13/2025 10:02 AM EDT 01/13/2025 11:05 AM EDT us Wiley Ana Cristina BUSH LAB BLOOD ORDERABLES Final Resul t Performing Organization Address [facility] Co de Phone Number [facility] [address] [place] [phone] * (ABNORMAL) Lipid Panel, Standard (01/13/2025 10:02 AM EDT) Only the most recent of2 resultswithin the time period is included. Triglycerides 315(H) <150 mg/dL [facility] Comment:Desirable Triglyceri de: less than 150 mg/dLBorderline High Triglyceride 150-199 mg/dLHigh Triglyceride: 200-499 mg/dLVery High Triglyceride: greater than or equal to 5OO mg/dL Cholesterol 180 <200 mg/dL [facility] Comment:Desirable Cholestero l: less than 200 mg/dLBorderline High Cholesterol: 200-239 mg/dLHigh Cholesterol: greater than 239 mg/dL LDL Cholesterol Calculated 61 <100 mg/dL [facility] Comment:Desirable LDL: less than 100 mg/dLNear Optimal/Above Optimal LDL: 110- 129 mg/dLBorderline High LDL: 130-159 mg/dLHigh LDL: 160-189 mg/dLVery High LDL: greater than or equal to 190 mg/dL HDL Cholesterol 56 >40 mg/dL [facility] Comment:Desirable HDL: great er than 40 mg/dL Note: This HDL assay may give artificially low results in patients with liver disease. 01/13/2025 10:0 2 AM EDT 01/13/2025 11:05 AM EDT us Saurabh De La Paz MD LAB BLOOD ORDERABLES Final Resul t [facility] [address] [place] [phone] * (ABNORMAL) Comprehensive Metabolic Panel (01/13/2025 10:02 AM EDT) Only the most recent of2 resultswithin the time period is included. Sodium 136 135 - 145 mmol/L [facility] Potassium 4.1 3.3 - 5.1 mmol/L [facility] Chloride 100 96 - 108 mmol/L [facility] Carbon Dioxide 23 22 - 29 mmol/L [facility] Anion Gap 17 12 - 20 [facility] Urea Nitrogen (BUN) 16 9 - 16 mg/dL [facility] Creatinine, Serum 0.86 0.5 - 1.4 mg/dL [facility] Estimated Glomerular Filt Rate >60 [facility] Comment:Chronic Kidney Disea se: Estimated GFR < 60 mL/min/1.39w3Rtflui Kidney Disease: Estimated GFR < 15 mL/min/1.73m2 Glucose 102 60 - 115 mg/dL [facility] Calcium 9.9 8.4 - 10.2 mg/dL [facility] Bilirubin, Total 0.4 0.0 - 1.0 mg/dL [facility] Aspartate Amino Transferase 35 5 - 37 U/L [facility] Alanine Aminotransferase 30 0 - 40 U/L [facility] Total Protein 8.5(H) 6.5 - 8.0 g/dL [facility] Albumin Level 4.6 3.5 - 5.0 g/dL [facility] Alkaline Phosphatase 61 39 - 117 U/L [facility] 01/13/2025 10:0 2 AM EDT 01/13/2025 11:05 AM EDT us Saurabh Name LAB BLOOD ORDERABLES Final Resul t [facility] [address] [place] [phone] * (ABNORMAL) Drug Monitoring, Panel 1, Screen, Urine (10/27/2024 8:58 AM EST) Opiate Screen Urine Not Detected Not Detect [facility] Comment:Opiate cut-off is 30 0 ng/mL.Positive results are unconfirmed and should not be used fornon-medical purposes. Barbiturates, Urine Not Detected Not Detect [facility] Comment:Barbiturate cut-off is 200 ng/mL.Positive results are unconfirmed and should not be used fornon-medical purposes. Phencyclidine Screen Urine Not Detected Not Detect [facility] Comment:Phencyclidine cut-of f is 25 ng/mL.Positive results are unconfirmed and should not be used fornon-medical purposes. Amphetamine Screen Urine Not Detected Not Detect [facility] Comment:Amphetamine cut-off is 1000 ng/mL.Positive results are unconfirmed and should not be used fornon-medical purposes. Benzodiazepines Screen Urine Not Detected Not Detect [facility] Comment:Benzodiazepine cut-o ff is 200 ng/mL.Positive results are unconfirmed and should not be used fornon-medical purposes. Cocaine Screen Urine POSITIVE(A) Not Detect [facility] Comment:Cocaine cut-off is 3 00 ng/mL.Positive results are unconfirmed and should not be used fornon-medical purposes. Cannabinoid Screen Urine Not Detected Not Detect [facility] Comment:Cannabinoid cut-off is 50 ng/mL.Positive results are unconfirmed and should not be used fornon-medical purposes. Methadone Screen, Urine Not Detected Not Detect ng/mL [facility] Comment:Methadone cut-off is 300 ng/mL.Positive results are unconfirmed and should not be used fornon-medical purposes. FENTANYL URINE Not Detected Not Detect [facility] Comment:Fentanyl cut-off is 1 ng/mL.Positive results are unconfirmed and should not be used fornon-medical purposes. Oxycodone Urine Screen Not Detected Not Detect ng/mL [facility] Comment:Oxycodone cut-off is 100 ng/mL.Positive results are unconfirmed and should not be used fornon-medical purposes. Buprenorphine Screen Not Detected Not Detect ng/mL [facility] Comment:Buprenorphine cut-of f is 5 ng/mL.Positive results are unconfirmed and should not be used fornon-medical purposes. 10/27/2024 8:58 AM EST 10/27/2024 11:22 AM EST us Saurabh Name MD LAB URINE ORDERABLES Final Resul t [facility] [address] [place] [phone] * Drug Monitoring, Fentanyl, with Confirmation, Urine (10/27/2024 8:58 AM EST) Fentanyl, Ur NEGATIVE [facility] Comment:REFERENCE RANGE: <0. 5 ng/mL Norfentanyl, Ur NEGATIVE [facility] Comment:REFERENCE RANGE: <0. 5 ng/mL Fentanyl Note SEE NOTE [facility] Comment:This drug testing is for medical treatment only. Analysiswas performed as non-forensic testing and these resultsshould be used only by healthcare providers to renderdiagnosis or treatment, or to monitor progress of medicalconditions.LDT Notes:Confirmation tests were developed and their analyticalperformance characteristics have been determined by [employer]. It has not been cleared or approved by the FDA.This assay has been validated pursuant to the CLIAregulations and is used for clinical purposes.Healthcare Providers needing Interpretation assistance,please contact us at [phone] ( ) M-F,8am to 10pm ESTTHIS TEST PERFORMED AT:[facility] [place] [phone] DIRECTOR: KRYSTA WILSON MD Urine (Urine, Random) 10/27/2024 8:58 AM EST 10/27/2024 11:22 AM EST us Saurabh De La Paz MD LAB URINE ORDERABLES Final Resul t [facility] [address] [place] [phone] from Last 3 Months Insurance [facility] [employer] (HMO D-SNP) [place]A [id number] Care Teams Drafter Electronic Relationship Specialty Start Date End Date Name, MD Saurabh [address] [place] [address] PCP - General Family Medicine 12/06/15
== END 2025-01-14 13:08 | disposition home or self-care (01) ==
LOC: HO.HHCLNP 13:07
PROVIDERS: Visit Provider Internal Medicine Geriatric Medicine
DX: Z13.89 Encounter for screening for other disorder (principal)